=== PATIENT | female | born 1995 | race Caucasian/White ===

== ENCOUNTER 2018-11-04 17:38 | Day surgery (SDC) | payer BC ==
[~2018-11-04] VITALS: Ht 170.2 cm; Wt 183.3 kg
[~2018-11-04 17:38] MED LIST: CETI10TA17 PO; FAMO20TA13 PO; NAPR-243 PO; PRD20T PO; PRD50T PO
--- OUTSIDE RECORDS SUMMARY | 2018-11-04 17:43 | XMS REPORT | Continuity of Care Document ---
Author Organization Unknown Address Unknown Allergies Active Description Code Type Severity Reaction Onset Reported/Identified Relationship to Patient Clinical Status Yes NO NAME AVAILABLE 72186 DRUG N/A N/A Yes NO NAME AVAILABLE [id number] DRUG N/A N/A Yes No Known Drug Allergies [id number] Drug Allergy Unknown N/A 05/06/2012 Medications Medication Packaging Start Date Stop Date Route Dosage Sig OXYTOCIN-LACTATED RINGERS 30 UNIT/500ML IV SOLN 06/07/2018 Intravenous 30 ONCE PRN MISOPROSTOL 200 MCG PO TABS 06/07/2018 Rectal 200 ONCE PRN METHYLERGONOVINE MALEATE 0.2 MG/ML IJ SOLN 06/07/2018 Intramuscular 200 ONCE PRN CARBOPROST TROMETHAMINE 250 MCG/ML IM SOLN 06/07/2018 Intramuscular 250 ONCE PRN ONDANSETRON HCL 4 MG/2ML IJ SOLN 06/07/2018 Intravenous 4 ONCE LACTATED RINGERS IV SOLN 06/07/2018 Intravenous 150 CONTINUOUS SOD CITRATE-CITRIC ACID 500-334 MG/5ML PO SOLN 06/07/2018 Oral 30 ONCE BUPIVACAINE IN DEXTROSE 0.75-8.25 % IT SOLN 06/07/2018 06/07/2018 Intrathecal PHENYLEPHRINE HCL-NACL 1-0.9 MG/10ML-% IV SOSY 06/07/2018 Intravenous PRN PHENYLEPHRINE 10 MG/100 ML INFUSION (ONE-STEP) 06/07/2018 CONTINUOUS PRN OXYTOCIN 30 UNITS IN 500 ML (ONE-STEP) 06/07/2018 Intravenous CONTINUOUS PRN NALOXONE HCL 0.4 MG/ML IJ SOLN 06/07/2018 Intravenous 0.1 ONCE PRN IBUPROFEN 600 MG PO TABS 06/07/2018 06/08/2018 Oral 600 EVERY 8 HOURS [id number] PERTUSSIS 5-2-15.5 LF-MCG/0.5 IM SUSP 06/07/2018 Intramuscular 0.5 Prior to discharge ALUM T MAG HYDROXIDE-SIMETH 200-200-20 MG/5ML PO SUSP 06/07/2018 Oral 30 EVERY 4 HOURS PRN ACETAMINOPHEN 325 MG PO TABS 06/07/2018 Oral 650 EVERY 4 HOURS PRN BISACODYL 10 MG RE SUPP 06/07/2018 [address] VALENZUELA NIPPLE OINTMENT 06/07/2018 Topical PRN OXYTOCIN-LACTATED RINGERS 30 UNIT/500ML IV SOLN 06/07/2018 Intravenous 30 ONCE PRN DIPHENHYDRAMINE HCL 50 MG/ML IJ SOLN 06/07/2018 Intravenous 25 EVERY 6 HOURS PRN ONDANSETRON HCL 4 MG/2ML IJ SOLN 06/07/2018 Intravenous 4 EVERY 6 HOURS PRN LANOLIN EX OINT 06/07/2018 Topical PRN SIMETHICONE 80 MG PO CHEW 06/07/2018 Oral 80 3 TIMES DAILY PRN MAGNESIUM HYDROXIDE 400 MG/5ML PO SUSP 06/07/2018 Oral 30 DAILY PRN ONDANSETRON 4 MG PO TBDP 06/07/2018 Oral 4 EVERY 6 HOURS PRN DIPHENHYDRAMINE HCL 25 MG PO CAPS 06/07/2018 Oral 25 EVERY 6 HOURS PRN MEASLES, MUMPS T RUBELLA VAC SC INJ 06/07/2018 Subcutaneous 0.5 Prior to discharge PLUS 27-1 MG PO TABS 06/07/2018 Oral 1 DAILY DOCUSATE SODIUM 100 MG PO CAPS 06/07/2018 Oral 100 2 TIMES DAILY FERROUS SULFATE 325 (65 FE) MG PO TABS 06/07/2018 Oral 325 2 TIMES DAILY WITH MEALS LACTATED RINGERS IV SOLN 06/07/2018 Intravenous 150 CONTINUOUS ENOXAPARIN SODIUM 120 MG/0.8ML SC SOLN 06/08/2018 Subcutaneous 0.6 EVERY 24 HOURS Problems Date Dx Coded Attending Type Code Diagnosis Diagnosed By 05/06/2012 Ot 625.9 FEM GENITAL SYMPTOMS NOS 05/06/2012 Ot 789.00 ABDOMINAL PAIN, UNSPECIFIED SITE 04/05/2013 SALLY RAMOS MD Ot 708.0 ALLERGIC URTICARIA 04/05/2013 SALLY RAMOS MD Ot 708.9 URTICARIA NOS 04/05/2013 SALLY RAMOS MD Ot 995.3 ALLERGY, UNSPECIFIED 04/05/2013 SALLY RAMOS MD Ot E000.8 OTHER EXTERNAL CAUSE STATUS 04/05/2013 SALLY RAMOS MD Ot E849.0 ACCIDENT IN HOME 04/05/2013 SALLY RAMOS MD Ot E928.8 ACCIDENT NEC 01/10/2015 Ot 786.09 01/10/2015 Ot 786.2 01/30/2015 Ot 786.09 01/30/2015 Ot 786.2 01/30/2015 Ot 786.09 01/30/2015 Ot 786.2 11/12/2015 Ot 786.09 RESPIRATORY ABNORM NEC 11/12/2015 Ot 786.2 COUGH 03/08/2017 Ot 786.09 RESPIRATORY ABNORM NEC 03/08/2017 Ot 786.2 COUGH 04/05/2017 Ot 786.09 RESPIRATORY ABNORM NEC 04/05/2017 Ot 786.2 COUGH 05/04/2017 PRESSLEY, CATHLEEN K V 28 Cough PRESSLEY, CATHLEEN K 05/04/2017 PRESSLEY, CATHLEEN K V L98.9 Disorder of the skin and subcutaneous tissue, unspecified PRESSLEY, CATHLEEN K 11/01/2017 V Z32.01 Encounter for test, result positive 11/09/2017 PRESSLEY, CATHLEEN K V 447 Vaginal Bleeding During 11/09/2017 PRESSLEY, CATHLEEN K V O20.8 Other hemorrhage in early 11/09/2017 PRESSLEY, CATHLEEN K F E28.2 Polycystic ovarian syndrome 11/09/2017 PRESSLEY, CATHLEEN K F O20.9 Hemorrhage in early , unspecified 11/09/2017 PRESSLEY, CATHLEEN K F O99.281 Endocrine, nutritional and metabolic diseases complicating , first trimester 11/09/2017 PRESSLEY, CATHLEEN K F Z3A.01 Less than 8 weeks gestation of 05/29/2018 JIN JAY S V [id number] Abdominal Pain 05/29/2018 PIERRE JIN S F O26.893 Other specified related conditions, third trimester 05/29/2018 PIERRE JIN S F R10.9 Unspecified abdominal pain 05/29/2018 PIERRE JIN S F Z3A.36 36 weeks gestation of 05/29/2018 PIERRE JIN S F 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 06/11/2018 CARISSA DOTSON V 029555 Hypertension 06/11/2018 CARISSA DOTSON O32.6XX0 Maternal care for compound presentation, not applicable or unspecified 06/11/2018 CARISSA DOTSON V Z98.891 History of uterine scar from previous surgery 06/11/2018 SOPHIAGAVINO AcevedoCARISSA A V O32.6XX0 Maternal care for compound presentation, not applicable or unspecified 06/11/2018 SOPHIAGAVINO AcevedoCARISSA Cameron Keysha E28.2 Polycystic ovarian syndrome 06/11/2018 SOPHIAGAVINO AcevedoCARISSA A F E66.01 Morbid (severe) obesity due to excess calories (HCC) 06/11/2018 NILA CARISSA Barnes F F32.9 Major depressive disorder, single episode, unspecified 06/11/2018 SOPHIAGAVINO AcevedoCARISSA A F F41.9 Anxiety disorder, unspecified 06/11/2018 SOPHIACurtis CARISSA Chopra K21.9 Gastro-esophageal reflux disease without esophagitis 06/11/2018 CARISSA DOTSON F O10.92 Unspecified pre-existing hypertension complicating childbirth 06/11/2018 CARISSA DOTSON F O11.4 Pre-existing hypertension with pre-eclampsia, complicating childbirth 06/11/2018 CARISSA DOTSON O32.1XX0 Maternal care for breech presentation, not applicable or unspecified 06/11/2018 SOPHIAGAVINO AcevedoCARISSA A F O32.6XX0 Maternal care for compound presentation, not applicable or unspecified 06/11/2018 CARISSA DOTSON O99.214 Obesity complicating childbirth 06/11/2018 CARISSA DOTSON F O99.284 Endocrine, nutritional and metabolic diseases complicating childbirth 06/11/2018 CARISSA DOTSON F O99.344 Other mental disorders complicating childbirth 06/11/2018 CARISSA DOTSON F O99.62 Diseases of the digestive system complicating childbirth 06/11/2018 CARISSA DOTSON F R12 Heartburn 06/11/2018 CARISSA DOTSON Z37.0 Single live 06/11/2018 CARISSA DOTSON Z3A.37 37 weeks gestation of 06/11/2018 CARISSA DOTSON P O11.9 Pre-existing hypertension with pre-eclampsia, unspecified trimester 08/17/2018 WALI SIFUENTES V [id number] Chest Pain 08/17/2018 WALI SIFUENTES V R07.9 Chest pain, unspecified 08/17/2018 WALI SIFUENTES V R09.1 Pleurisy 08/17/2018 WALI SIFUENTES E28.2 Polycystic ovarian syndrome 08/17/2018 WALI SIFUENTES E66.01 Morbid (severe) obesity due to excess calories (HCC) 08/17/2018 WALI SIFUENTES F32.9 Major depressive disorder, single episode, unspecified 08/17/2018 WALI SIFUENTES I10 Essential (primary) hypertension 08/17/2018 WALI SIFUENTES R06.02 Shortness of breath 08/17/2018 WALI SIFUENTES R07.89 Other chest pain 08/17/2018 WALI SIFUENTES R09.1 Pleurisy 08/17/2018 WALI SIFUENTES Z68.44 Body mass index (bmi) 60.0-69.9, adult (HCC) Procedures Code Description Performed By Performed On [id number] HCG, QUANTITATIVE, 11/01/2017 [id number] AMB REFERRAL TO MATERNAL MEDICINE 02/07/2018 59695 RI NON-STRESS TEST 05/29/2018 [id number] Extraction of Products of Conception, Low, Open Approach 06/07/2018 Results Test Result Range HCG, QUANTITATIVE, - 11/01/17 14:42 B-HCG QUANTITATIVE 03284 mIU/mL <=4 CBC WITH AUTO DIFFERENTIAL - 11/09/17 01:09 BASOPHILS RELATIVE PERCENT 0.4 % 0.0-2.5 EOSINOPHILS RELATIVE PERCENT 1.2 % <=5.0 HEMATOCRIT 43.2 % 34.9-44.5 HEMOGLOBIN 14.0 g/dL 12.0-15.5 LYMPHOCYTES RELATIVE PERCENT 30.3 % 22.0-49.0 MEAN CORPUSCULAR HEMOGLOBIN 28.6 pg 26.0-34.0 MEAN CORPUSCULAR HEMOGLOBIN CONC 32.4 g/dL 31.0-37.0 MEAN CORPUSCULAR VOLUME 88.2 fL 81.6-98.3 MONOCYTES RELATIVE PERCENT 6.9 % 2.0-9.0 NEUTROPHILS RELATIVE PERCENT 61.2 % 40.0-75.0 NUCLEATED RED BLOOD CELLS 0 10E9/L <=0 PLATELET COUNT 303 10E9/L 150-450 RED BLOOD CELL COUNT 4.90 10E12/L 3.90-5.03 RED CELL DISTRIBUTION WIDTH 12.3 % 11.9-15.5 0279496 11.2 10E9/L 3.5-10.5 1550756 3.40 10E9/L 0.90-2.90 2935946 0.78 10E9/L 0.30-0.90 1802536 0.14 10E9/L 0.05-0.50 5901057 6.87 10E9/L 1.70-7.00 3327120 0.04 10E9/L 0.00-0.30 5592855 0 % HCG, QUANTITATIVE, - 11/09/17 01:09 B-HCG QUANTITATIVE 89614 mIU/mL <=4 TYPE AND SCREEN - 11/09/17 01:09 ABORH O POS ANTIBODY SCREEN NEG TRICHOMONAS RAPID TEST - 11/09/17 01:35 2407828 Negative Negative, Invalid CHLAMYDIA TRACHOMATIS AMPLIFIED PROBE - 11/09/17 01:35 [id number] Negative Negative NEISSERIA GONORRHOEAE AMPLIFIED PROBE - 11/09/17 01:35 [id number] Negative Negative GRAM STAIN, ONLY - 11/09/17 01:36 [id number] No evidence of Bacterial Vaginosis HCG, QUANTITATIVE, - 11/10/17 10:03 B-HCG QUANTITATIVE 02668 mIU/mL <=4 CHLAMYDIA TRACHOMATIS AMPLIFIED PROBE - 12/13/17 10:40 [id number] Negative Negative NEISSERIA GONORRHOEAE AMPLIFIED PROBE - 12/13/17 10:40 [id number] Negative Negative PAP, LIQUID-BASED - 12/13/17 10:40 [id number] Result to be found under pathology section CBC WITH AUTO DIFFERENTIAL - 12/13/17 12:44 BASOPHILS RELATIVE PERCENT 0.4 % 0.0-2.5 EOSINOPHILS RELATIVE PERCENT 1.4 % <=5.0 HEMATOCRIT 40.3 % 34.9-44.5 HEMOGLOBIN 13.2 g/dL 12.0-15.5 LYMPHOCYTES RELATIVE PERCENT 25.7 % 22.0-49.0 MEAN CORPUSCULAR HEMOGLOBIN 28.9 pg 26.0-34.0 MEAN CORPUSCULAR HEMOGLOBIN CONC 32.8 g/dL 31.0-37.0 MEAN CORPUSCULAR VOLUME 88.2 fL 81.6-98.3 MONOCYTES RELATIVE PERCENT 7.6 % 2.0-9.0 NEUTROPHILS RELATIVE PERCENT 64.9 % 40.0-75.0 NUCLEATED RED BLOOD CELLS 0 10E9/L <=0 PLATELET COUNT 266 10E9/L 150-450 RED BLOOD CELL COUNT 4.57 10E12/L 3.90-5.03 RED CELL DISTRIBUTION WIDTH 12.5 % 11.9-15.5 4495964 9.1 10E9/L 3.5-10.5 0901547 2.34 10E9/L 0.90-2.90 2849632 0.69 10E9/L 0.30-0.90 7658722 0.13 10E9/L 0.05-0.50 2881228 5.91 10E9/L 1.70-7.00 9320930 0.04 10E9/L 0.00-0.30 3802185 0 % TYPE AND SCREEN - 12/13/17 12:44 ABORH O POS ANTIBODY SCREEN NEG HEPATITIS B SURFACE ANTIGEN - 12/13/17 12:44 HEPATITIS B SURFACE ANTIGEN INTERPRETATION Non-reactive Non- reactive RUBELLA ANTIBODY, IGG - 12/13/17 12:44 RUBELLA SCREEN 23.80 IU/mL GEST. GLUCOSE SCREEN - 12/13/17 12:44 GEST. GLUCOSE SCREEN 82 mg/dL <=139 HIV-1/2 ANTIBODY, HIV-1 P24 ANTIGEN - 12/13/17 12:44 [id number] Non-Reactive Non-Reactive RPR - 12/13/17 12:44 RPR Non-Reactive Non-Reactive URINE CULTURE - 12/13/17 12:44 [id number] [place] Count>92364 <446174 cfu/mL of at least 2 organisms suggestive of contamination PREPARENT STANDARD - 12/13/17 12:44 [id number] See scanned Progenity report PROTEIN / CREATININE RATIO, URINE - 02/16/18 14:25 CREATININE URINE 163.4 mg/dL PROTEIN URINE 8.0 mg/dL [id number] 0.05 <0.16 CBC WITHOUT DIFFERENTIAL - 03/28/18 12:12 HEMATOCRIT 36.3 % 34.9-44.5 HEMOGLOBIN 11.9 g/dL 12.0-15.5 MEAN CORPUSCULAR HEMOGLOBIN 30.3 pg 26.0-34.0 MEAN CORPUSCULAR HEMOGLOBIN CONC 32.8 g/dL 31.0-37.0 MEAN CORPUSCULAR VOLUME 92.4 fL 81.6-98.3 PLATELET COUNT 309 10E9/L 150-450 RED BLOOD CELL COUNT 3.93 10E12/L 3.90-5.03 RED CELL DISTRIBUTION WIDTH 12.9 % 11.9-15.5 3795311 11.2 10E9/L 3.5-10.5 GEST. GLUCOSE SCREEN - 03/28/18 12:12 GEST. GLUCOSE SCREEN 107 mg/dL <=139 PROTEIN, URINE, 24 HOUR - 04/06/18 06:15 24 HR URINE VOLUME 1600 mL 800-1,800 PROTEIN 24 HOUR URINE mg/24h 0-149 PROTEIN URINE < mg/dL GROUP B BETA STREP SCREEN - 05/31/18 08:15 [id number] Negative PERFORM URINE SCREEN, AUTOMATED - 06/07/18 16:28 APPERANCE Clear BILIRUBIN 1+ Negative COLOR Dark Yellow GLUCOSE Negative Negative HEMOGLOBIN Negative Negative KETONES Trace Negative LEUKOESTERASE Negative Negative NITRATE Negative Negative PH-URINE 6.0 5.0-8.0 PROTEIN 1+ Negative SPECIFIC GRAVITY 1.020 1.003-1.030 2239 0.2 EU <=0.2 PROTEIN / CREATININE RATIO, URINE - 06/07/18 17:22 CREATININE URINE 240.8 mg/dL PROTEIN URINE 14.1 mg/dL [id number] 0.06 <0.16 CBC WITH AUTO DIFFERENTIAL - 06/07/18 18:19 BASOPHILS RELATIVE PERCENT 0.3 % 0.0-2.5 EOSINOPHILS RELATIVE PERCENT 0.6 % <=5.0 HEMATOCRIT 35.5 % 34.9-44.5 HEMOGLOBIN 11.5 g/dL 12.0-15.5 LYMPHOCYTES RELATIVE PERCENT 18.6 % 22.0-49.0 MEAN CORPUSCULAR HEMOGLOBIN 29.4 pg 26.0-34.0 MEAN CORPUSCULAR HEMOGLOBIN CONC 32.4 g/dL 31.0-37.0 MEAN CORPUSCULAR VOLUME 90.8 fL 81.6-98.3 MONOCYTES RELATIVE PERCENT 5.5 % 2.0-9.0 NEUTROPHILS RELATIVE PERCENT 75.0 % 40.0-75.0 NUCLEATED RED BLOOD CELLS 0 10E9/L <=0 PLATELET COUNT 331 10E9/L 150-450 RED BLOOD CELL COUNT 3.91 10E12/L 3.90-5.03 RED CELL DISTRIBUTION WIDTH 12.8 % 11.9-15.5 6279541 11.8 10E9/L 3.5-10.5 8110472 2.19 10E9/L 0.90-2.90 9501198 0.65 10E9/L 0.30-0.90 8975161 0.07 10E9/L 0.05-0.50 3515508 8.85 10E9/L 1.70-7.00 5815235 0.03 10E9/L 0.00-0.30 1349594 0 % URIC ACID - 06/07/18 18:19 URIC ACID 6.7 mg/dL 2.8-7.6 COMPREHENSIVE METABOLIC PANEL - 06/07/18 18:19 ALBUMIN 4.0 g/dL 3.4-4.8 ALKALINE PHOSPHATASE 319 U/L 29-122 ALT 92 U/L 10-46 ANION GAP 10 AST 62 U/L 16-37 BILIRUBIN,TOTAL 0.4 mg/dL 0.0-1.2 BUN BLOOD 10 mg/dL 6-20 CALCIUM 9.3 mg/dL 8.7-10.5 CHLORIDE 104 mmol/L 99-111 CO2 23 mmol/L 20-36 CREATININE 0.83 mg/dL 0.40-1.10 EGFR > mL/min >59 GLUCOSE 92 mg/dL 74-106 POTASSIUM 4.5 mmol/L 3.6-4.9 PROTEIN TOTAL 6.9 g/dL 6.4-8.3 SODIUM 137 mmol/L 136-145 LACTATE DEHYDROGENASE - 06/07/18 18:19 LDH 258 u/L 128-212 Packed Cells Leukoreduced - 06/07/18 17:50 Packed Cells Leukoreduced CORD GAS,VENOUS - 06/07/18 20:21 BASE EXCESS CORD VENOUS -7 mmol/L 1-2 PCO2 CORD VENOUS 68 mm Hg 28-40 PH CORD VENOUS 7.16 7.31-7.37 PO2 CORD VENOUS 11 mm Hg 21-31 CORD GAS,ARTERIAL - 06/07/18 20:21 BASE EXCESS ARTERIAL CORD -7.9 mmol/L -9.9-0.0 PCO2 CORD ARTERIAL 81 mm Hg 33-49 PH CORD ARTERIAL 7.09 7.16-7.40 PO2 CORD ARTERIAL 9 mm Hg 9-19 HEMOGLOBIN AND HEMATOCRIT, BLOOD - 06/08/18 07:13 HEMATOCRIT 33.1 % 34.9-44.5 HEMOGLOBIN 10.8 g/dL 12.0-15.5 CBC WITH AUTO DIFFERENTIAL - 08/17/18 00:53 BASOPHILS RELATIVE PERCENT 0.3 % 0.0-2.5 EOSINOPHILS RELATIVE PERCENT 1.5 % <=5.0 HEMATOCRIT 39.0 % 34.9-44.5 HEMOGLOBIN 12.1 g/dL 12.0-15.5 LYMPHOCYTES RELATIVE PERCENT 17.8 % 22.0-49.0 MEAN CORPUSCULAR HEMOGLOBIN 26.8 pg 26.0-34.0 MEAN CORPUSCULAR HEMOGLOBIN CONC 31.0 g/dL 31.0-37.0 MEAN CORPUSCULAR VOLUME 86.5 fL 81.6-98.3 MONOCYTES RELATIVE PERCENT 4.7 % 2.0-9.0 NEUTROPHILS RELATIVE PERCENT 75.7 % 40.0-75.0 NUCLEATED RED BLOOD CELLS 0 10E9/L <=0 PLATELET COUNT 352 10E9/L 150-450 RED BLOOD CELL COUNT 4.51 10E12/L 3.90-5.03 RED CELL DISTRIBUTION WIDTH 13.2 % 11.9-15.5 3603842 13.5 10E9/L 3.5-10.5 6769289 2.40 10E9/L 0.90-2.90 7529721 0.63 10E9/L 0.30-0.90 4658892 0.20 10E9/L 0.05-0.50 4138332 10.18 10E9/L 1.70-7.00 6493468 0.04 10E9/L 0.00-0.30 4223704 0 % COMPREHENSIVE METABOLIC PANEL - 08/17/18 00:53 ALBUMIN 4.2 g/dL 3.4-4.8 ALKALINE PHOSPHATASE 160 U/L 29-122 ALT 31 U/L 10-46 ANION GAP 9 AST 36 U/L 16-37 BILIRUBIN,TOTAL 0.4 mg/dL 0.0-1.2 BUN BLOOD 16 mg/dL 6-20 CALCIUM 8.9 mg/dL 8.7-10.5 CHLORIDE 102 mmol/L 99-111 CO2 29 mmol/L 20-36 CREATININE 1.03 mg/dL 0.40-1.10 EGFR > mL/min >59 GLUCOSE 134 mg/dL 74-106 POTASSIUM 4.4 mmol/L 3.6-4.9 PROTEIN TOTAL 6.4 g/dL 6.4-8.3 SODIUM 140 mmol/L 136-145 TROPONIN I - 08/17/18 00:53 TROPONIN I < ng/mL 0.000-0.040 URINALYSIS, REFLEX CULTURE IF NEEDED - 08/17/18 01:35 APPEARANCE Cloudy BACTERIA 2+ /ul BILIRUBIN UA Negative Negative COLOR Yellow GLUCOSE UA Negative Negative HEMOGLOBIN UA Negative Negative LEUKOCYTE ESTERASE UA Negative Negative NITRATE UA Negative Negative PH UA 5.5 5.0-8.0 PROTEIN UA Negative Negative RBC UA 0-3 /hpf 0-3 SPECIFIC GRAVITY UA 1.028 1.003-1.030 SQUAMOUS EPITHELIAL 4+ /hpf UROBILINOGEN UA 1.0 EU/dL 0.2 WBC UA 4-10 /hpf 0-3 5918503 Negative Negative 2984967 5 /lpf Radiology Report from [id number] on 04/12/2018 15:39:20 Results from a Maternal Medicine study have been reported below.* [employer] users: Click "Open ViewPoint Report" link under "Linked Documents" section.* [facility] P[facility] users: View this result from [employer].* FAX Recipients: Blank page may follow report. Contact [facility] at [phone] if illegible or missing page. Radiology Report from [id number] on 05/10/2018 16:38:56 Results from a Maternal Medicine study have been reported below.* [employer] users: Click "Open ViewPoint Report" link under "Linked Documents" section.* [facility] users: View this result from [employer].* FAX Recipients: Blank page may follow report. Contact [facility] at [phone] if illegible or missing page. Radiology Report from [id number] on 06/07/2018 15:53:26 Results from a Maternal Medicine study have been reported below.* [employer] users: Click "Open ViewPoint Report" link under "Linked Documents" section.* [facility] users: View this result from [employer].* FAX Recipients: Blank page may follow report. Contact [facility] at [phone] if illegible or missing page. Radiology Report from [id number] on 08/17/2018 07:20:18 EXAM: Chest, 2 ViewsINDICATION: Atypical chestTECHNIQUE: PA and lateral viewsCOMPARISON: NoneFINDINGS:The heart size is normal.The great vessels appear unremarkable.There is no hilar or mediastinal mass.The lungs are clear.There is no pleural effusion or pneumothorax.There are no significant osseous abnormalities.IMPRESSION:No active cardiopulmonary disease. Encounters ACCT No. Visit Date/Time Discharge Status Pt. Type Provider Facility Loc./Unit Complaint [id number] 11/01/2018 11:20:00 ACT Outpatient [facility] [id number] 04/05/2013 07:15:00 04/05/2013 10:23:00 DIS Emergency RACHEL CARRENO, SALLY Crane [facility] ER ALLERGIC REACTION [id number] 12/31/2012 11:16:00 12/31/2012 23:59:59 CLS Outpatient [id number] 06/15/2012 14:54:00 Document Registration [id number] 05/06/2012 09:43:00 Document Registration [id number] 07/21/2018 11:17:28 07/21/2018 23:59:59 CLS Outpatient [facility] [employer] [facility] [id number] 06/17/2018 11:42:37 06/17/2018 23:59:59 [facility] [place] [employer] [id number] 06/07/2018 09:09:34 06/07/2018 23:59:59 CLS Outpatient [facility] [place] [employer] [id number] 05/31/2018 08:17:10 05/31/2018 23:59:59 CLS Outpatient [place] [employer] [facility] [id number] 05/31/2018 08:01:12 05/31/2018 23:59:59 CLS Outpatient [facility] [place] [employer] [place] [id number] 05/25/2018 08:09:07 05/25/2018 23:59:59 CLS Outpatient [facility] [place] [employer] [place] [id number] 05/10/2018 10:47:04 05/10/2018 23:59:59 CLS Outpatient [place] [employer] [facility] [id number] 05/10/2018 08:59:23 05/10/2018 23:59:59 CLS Outpatient JIN JAY [place] [facility] [facility] [id number] 04/26/2018 11:10:29 04/26/2018 23:59:59 CLS Outpatient JIN JAY [place] [facility] [facility] [id number] 04/13/2018 11:28:40 04/13/2018 23:59:59 CLS Outpatient JIN JAY [place] [facility] [facility] [id number] 04/06/2018 11:06:36 04/06/2018 23:59:59 CLS Outpatient [place] [facility] [employer] [facility] [id number] 03/28/2018 10:58:38 03/28/2018 23:59:59 CLS Outpatient [place] [facility] [employer] [facility] [id number] 03/28/2018 10:57:11 03/28/2018 23:59:59 CLS Outpatient JIN JAY [place] [facility] [facility] [id number] 03/08/2018 10:03:31 03/08/2018 23:59:59 CLS Outpatient TORY NIELSON [place] [employer] [facility] [id number] 02/07/2018 14:47:33 02/07/2018 23:59:59 CLS Outpatient KAITYSAMRALINDAZACKARY [place] [employer] [facility] [id number] 02/07/2018 14:46:47 02/07/2018 23:59:59 CLS Outpatient [place] [facility] [facility] [id number] 01/10/2018 09:21:27 01/10/2018 23:59:59 CLS Outpatient [place] [employer] [facility] [id number] 01/10/2018 08:51:04 01/10/2018 23:59:59 CLS Outpatient CELIA BLACKMAN [place] [employer] [facility] [id number] 12/13/2017 11:22:01 12/13/2017 23:59:59 CLS Outpatient [place] [employer] [facility] [id number] 12/13/2017 10:29:48 12/13/2017 23:59:59 CLS Outpatient JAYSON DENISE [place] [employer] [facility] [id number] 11/19/2017 15:18:29 11/19/2017 23:59:59 CLS Outpatient [place] [employer] [facility] [id number] 11/10/2017 09:58:23 11/10/2017 23:59:59 CLS Outpatient [place] [employer] [facility] [id number] 11/05/2017 15:16:37 11/05/2017 23:59:59 CLS Outpatient [place] [employer] [facility] [id number] 11/01/2017 14:37:38 11/01/2017 23:59:59 CLS Outpatient [place] [employer] W[facility] [id number] 10/11/2018 10:13:45 10/11/2018 23:59:59 CLS Outpatient Linnette Lubin DeniaRayne [id number] 08/16/2018 23:55:58 08/17/2018 02:36:00 DIS Emergency WALI SIFUENTES [facility] [id number] 06/20/2018 11:10:51 06/20/2018 23:59:00 DIS Outpatient [facility] [id number] 06/13/2018 12:17:47 06/13/2018 23:59:00 DIS Outpatient PIERRE JIN Loza [facility] [id number] 06/12/2018 12:43:43 06/12/2018 23:59:00 DIS Outpatient PIERRESAKINAJIN S [facility] [id number] 06/07/2018 16:09:00 06/11/2018 15:21:00 DIS Inpatient CARISSA DOTSON [facility] [id number] 06/07/2018 15:08:04 06/07/2018 23:59:59 CLS Outpatient [facility] [id number] 06/07/2018 15:00:29 06/07/2018 23:59:59 CLS Outpatient [facility] [id number] 06/07/2018 14:59:19 06/07/2018 23:59:59 CLS Outpatient CHAUNCEY JUAREZ [facility] [id number] 05/29/2018 06:05:23 05/29/2018 23:59:59 CLS Outpatient JIN JAY [address] [id number] 05/29/2018 03:34:00 05/29/2018 05:55:00 DIS Outpatient JIN JAY [address] [id number] 05/10/2018 15:13:28 05/10/2018 23:59:59 CLS Outpatient [place] [facility] [id number] 05/10/2018 14:56:02 05/10/2018 23:59:59 CLS Outpatient [place] [facility] [id number] 05/10/2018 14:55:42 05/10/2018 23:59:59 CLS Outpatient REILLY ROMERO [facility] [id number] 04/12/2018 14:10:23 04/12/2018 23:59:59 CLS Outpatient [place] [facility] [id number] 04/12/2018 13:48:14 04/12/2018 23:59:59 CLS Outpatient [place] [facility] [id number] 04/12/2018 13:47:32 04/12/2018 23:59:59 CLS Outpatient REILLY ROMERO [facility] [id number] 03/16/2018 13:04:32 03/16/2018 23:59:59 CLS Outpatient [place] [facility] [id number] 03/16/2018 12:48:22 03/16/2018 23:59:59 CLS Outpatient [place] [facility] [id number] 03/16/2018 12:47:58 03/16/2018 23:59:59 CLS Outpatient REILLY ROMERO [facility] [id number] 02/16/2018 13:02:33 02/16/2018 23:59:59 CLS Outpatient [place] [facility] [id number] 02/16/2018 12:24:03 02/16/2018 23:59:59 CLS Outpatient [place] [facility] [id number] 02/16/2018 12:23:39 02/16/2018 23:59:59 CLS Outpatient REILLY ROMERO [facility] [id number] 11/09/2017 00:58:07 11/09/2017 02:45:00 DIS Emergency PRESSLEYCATHLEEN Llamas [facility] [id number] 05/04/2017 20:59:14 05/04/2017 21:17:00 DIS Emergency PRESSLEYCATHLEEN Llamas [facility] [id number] 10/27/2015 16:32:47 10/27/2015 23:59:59 [facility] Outpatient VICK MIDDLETON [facility] [id number] 08/17/2018 01:11:06 Document Registration [id number] 06/07/2018 20:14:18 Document Registration [id number] 06/02/2018 10:40:15 Document Registration [id number] 04/06/2018 13:28:24 Document Registration [id number] 03/28/2018 14:16:35 Document Registration [id number] 12/13/2017 14:32:18 Document Registration [id number] 11/10/2017 13:29:03 Document Registration [id number] 11/01/2017 18:53:52 Document Registration
--- NOTE | 2018-11-04 18:20 | ED Abdominal Pain ---
General Chief Complaint: Abdominal/GI Problems Stated Complaint: R SIDE ABD PAIN Nursing Triage Note: PATIENT STATES THAT SHE HAS HAD "GALLBLADDER ATTACKS" SINCE BEFORE HER SECTION IN MAY. SHE HAS THEM ABOUT MONTHLY BUT HER PAIN HAS BEEN OFF AND ON CONSISTENTLY SINCE LAST NIGHT. SHE STATES THE PAIN IS SEVERE. Sepsis Screen: No Definite Risk Source of Information: Patient Exam Limitations: No Limitations History of Present Illness Date Seen by Provider: Nov 04, 2018 Time Seen by Provider: 18:00 Initial Comments PT ARRIVES VIA POV FROM HOME C/O "GALLBLADDER ATTACKS" C/O RUQ PAIN "THAT GOES INTO MY SHOULDERS AND UP MY BACK AND INTO MY CHEST" STATES SHE HAD A IN MAY AND HAS BEEN HAVING THIS SAME PAIN SINCE JUNE STATES SHE HAS ABOUT ONE "ATTACK" A MONTH, USUALLY LASTING AN HOUR STATES SINCE 2129 LAST NIGHT, SHE HAS HAD "5 ATTACKS" C/O NAUSEA, AND VOMITED X 1 AT 0200 NO DIARRHEA NO FEVER NO URINARY SYMPTOMS HAS CONTINUED TO EAT AND DRINK USUAL--HAD FRIED CHICKEN STRIPS TODAY AROUND 1300, AND AN PEPSI STATES SHE WENT TO ER ONE TIME WHEN IT FIRST HAPPENED, AND WAS TOLD IT WAS "PROBABLY MY GALLBLADDER" BUT NEVER FOLLOWED UP WITH ANYONE FOR IT HAS NOT TAKEN ANYTHING FOR PAIN LMP 1 WEEK AGO, NO CONTROL NOT PCP: [facility] Allergies and Home Medications Allergies Coded Allergies: No Known Drug Allergies (Unverified , 05/06/12) Patient Home Medication List Home Medication List Reviewed: Yes Review of Systems Review of Systems Constitutional: no symptoms reported Respiratory: No Symptoms Reported Cardiovascular: See HPI Gastrointestinal: See HPI, Abdominal Pain; Denies Constipated, Denies Diarrhea; Nausea, Vomiting Genitourinary: No Symptoms Reported Musculoskeletal: see HPI, back pain Skin: no symptoms reported Psychiatric/Neurological: No Symptoms Reported Endocrine: No Symptoms Reported Hematologic/Lymphatic: No Symptoms Reported Past [id number] Hx Patient Social History Alcohol Use: Occasionally Uses Recreational Drug Use: No Smoking Status: Former Smoker (QUIT IN 2014) Type Used: Cigarettes 2nd Hand Smoke Exposure: No Recent Foreign Travel: No Contact w/Someone Who Travel: No Recent Infectious Disease Expo: No Past Medical History Surgeries: Yes ( X 1) Section, Tonsillectomy Respiratory: No Cardiac: No Neurological: No Reproductive Disorders: No Genitourinary: No Gastrointestinal: No Musculoskeletal: No Endocrine: No HEENT: Yes (S/P TONSILLECTOMY) Tonsilitis Cancer: No Psychosocial: No Integumentary: No Physical Exam Vital Signs Vital Signs - First Documented 11/04/18 17:41 Temp 98.0 Pulse 62 Resp 18 B/P (MAP) 159/91 (113) Pulse Ox 99 O2 Delivery Nasal Cannula Capillary Refill : Less Than 3 Seconds Height/Weight/BMI Height: 5'7.00" Weight: 404lbs. 5.0oz. 183.665167ms; BMI Method:Actual General Appearance: no apparent distress, obese (MORBIDLY OBESE), other (WALKS UPRIGHT AND MOVES WITHOUT DIFFICULTY. DOES NOT APPEAR TO BE IN ANY DISCOMFORT OR DISTRESS AT THIS TIME) HEENT: PERRL/EOMI Respiratory: normal breath sounds, no respiratory distress, no accessory muscle use Cardiovascular: no murmur Gastrointestinal: soft; No distended, No guarding, No rebound; tenderness (RUQ TENDERNESS); No hernia, No mass Extremities: normal inspection Back: no CVA tenderness, no vertebral tenderness Neurologic/Psychiatric: mate first II-XII nml as tested, no motor/sensory deficits, alert, normal mood/affect, oriented x 3 Skin: normal color, warm/dry; No rash Progress/Results/Core Measures Results/Orders Lab Results Laboratory Tests Test 11/04/18 18:12 11/04/18 18:16 Range/Units Urine Color YELLOW Urine Clarity SLIGHTLY CLOUDY Urine pH 7 5-9 Urine Specific Edwards 1.005 L 1.016-1.022 Urine Protein 1+ H NEGATIVE Urine Glucose (UA) NEGATIVE NEGATIVE Urine Ketones NEGATIVE NEGATIVE Urine Nitrite NEGATIVE NEGATIVE Urine Bilirubin 1+ H NEGATIVE Urine Urobilinogen 4 H NORMAL MG/DL Urine Leukocyte Esterase 1+ H NEGATIVE Urine RBC (Auto) 5+ H NEGATIVE Urine RBC NONE /HPF Urine WBC 10-25 H /HPF Urine Squamous Epithelial Cells 25-50 H /HPF Urine Crystals NONE /LPF Urine Bacteria MODERATE H /HPF Urine Casts NONE /LPF Urine Mucus NEGATIVE /LPF Urine Culture Indicated YES White Blood Count 4.7 4.3-11.0 10^3/uL Red Blood Count 4.98 4.35-5.85 10^6/uL Hemoglobin 13.4 11.5-16.0 G/DL Hematocrit 41 35-52 % Mean Corpuscular Volume 81 80-99 FL Mean Corpuscular Hemoglobin 27 25-34 PG Mean Corpuscular Hemoglobin Concent 33 32-36 G/DL Red Cell Distribution Width 13.8 10.0-14.5 % Platelet Count 310 130-400 10^3/uL Mean Platelet Volume 10.8 H 7.4-10.4 FL Neutrophils (%) (Auto) 52 42-75 % Lymphocytes (%) (Auto) 37 12-44 % Monocytes (%) (Auto) 9 0-12 % Eosinophils (%) (Auto) 2 0-10 % Basophils (%) (Auto) 0 0-10 % Neutrophils # (Auto) 2.5 1.8-7.8 X 10^3 Lymphocytes # (Auto) 1.7 1.0-4.0 X 10^3 Monocytes # (Auto) 0.4 0.0-1.0 X 10^3 Eosinophils # (Auto) 0.1 0.0-0.3 10^3/uL Basophils # (Auto) 0.0 0.0-0.1 10^3/uL Sodium Level 138 135-145 MMOL/L Potassium Level 4.5 3.6-5.0 MMOL/L Chloride Level 103 98-107 MMOL/L Carbon Dioxide Level 27 21-32 MMOL/L Anion Gap 8 5-14 MMOL/L Blood Urea Nitrogen 11 7-18 MG/DL Creatinine 1.00 0.60-1.30 MG/DL Estimat Glomerular Filtration Rate > 60 BUN/Creatinine Ratio 11 Glucose Level 101 70-105 MG/DL Calcium Level 9.5 8.5-10.1 MG/DL Corrected Calcium 9.4 8.5-10.1 MG/DL Total Bilirubin 2.2 H 0.1-1.0 MG/DL Aspartate Amino Transf (AST/SGOT) 827 H 5-34 U/L Alanine Aminotransferase (ALT/SGPT) 659 H 0-55 U/L Alkaline Phosphatase 273 H 40-136 U/L Total Protein 7.3 6.4-8.2 GM/DL Albumin 4.1 3.2-4.5 GM/DL Amylase Level 23 L 25-125 U/L Lipase 15 8-78 U/L My Orders Orders - HAL LÓPEZ DO Ed Iv/Invasive Line Start (11/04/18 18:08) Urine Bedside (11/04/18 18:08) Amylase (11/04/18 18:08) Cbc With Automated Diff (11/04/18 18:08) Comprehensive Metabolic Panel (11/04/18 18:08) Lipase (11/04/18 18:08) Ua Culture If Indicated (11/04/18 18:08) Ct Abdomen/Pelvis W (11/04/18 18:30) Acute Abd Series (11/04/18 18:30) Ondansetron Injection (Zofran Injectio (11/04/18 18:30) Ketorolac Injection (Toradol Injection) (11/04/18 18:30) Ed Iv/Invasive Line Start (11/04/18 18:30) Lactated Ringers (Lr 1000 Ml Iv Solution (11/04/18 18:30) Urine Culture (11/04/18 18:12) Iohexol Injection (Omnipaque 350 Mg/Ml 1 (11/04/18 19:00) Received Contrast (Hold Metformin- Contr (11/04/18 19:00) Sodium Chloride Flush (Catheter Flush Sy (11/04/18 19:00) Ns (Ivpb) (Sodium Chloride 0.9% Ivpb Bag (11/04/18 19:00) Medications Given in ED Current Medications Medications Dose Ordered Sig/Sailaja Route Start Time Stop Time Status Last Admin Dose Admin Iohexol 100 ml ONCE ONCE IV 11/04/18 19:00 11/04/18 19:01 DC 11/04/18 19:05 100 ML Lactated Ringer's 1,000 ml @ 0 mls/hr Q0M ONCE IV 11/04/18 18:30 11/04/18 18:32 DC 11/04/18 18:38 0 MLS/HR Ondansetron HCl 4 mg ONCE ONCE IVP 11/04/18 18:30 11/04/18 18:32 DC 11/04/18 18:38 4 MG Sodium Chloride 10 ml NEEDED PRN IV 11/04/18 19:00 11/04/18 19:06 10 ML Sodium Chloride 100 ml ONCE ONCE IV 11/04/18 19:00 11/04/18 19:01 DC 11/04/18 19:06 80 ML Vital Signs/I&O 11/04/18 17:41 Temp 98.0 Pulse 62 Resp 18 B/P (MAP) 159/91 (113) Pulse Ox 99 O2 Delivery Nasal Cannula Blood Pressure Mean: 113 Progress Progress Note : Progress Note PAIN AND NAUSEA EASED WITH ZOFRAN AND TORADOL Diagnostic Imaging Comments ABDOMEN XRAYS--NO ACUTE PROCESS CT ABDOMEN/PELVIS--CHOLELITHIASIS, DISTENDED GB AT 13 CM, CBD IS NOT DILATED PER RADIOLOGIST REPORTS AT 1924 Reviewed: Reviewed by Me Departure Communication (Admissions) 1926--SPOKE WITH 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 ACCEPTS PT FOR ADMIT Impression Primary Impression: Cholelithiasis Additional Impression: Elevated liver enzymes Disposition: ADMITTED INPATIENT Condition: Improved Admissions Decision to Admit Reason: Admit from ER (General) Decision to Admit/Date: Nov 04, 2018 Time/Decision to Admit Time: 19:30 Departure-Patient Inst. Referrals: NO,LOCAL PHYSICIAN (PCP/Family) Primary Care Physician HAL LÓPEZ DO Nov 04, 2018 18:20
[2018-11-04 18:21] LABS: BILIRUBIN,URINE 1+ (NEGATIVE); CLARITY,URINE SLIGHTLY CLOUDY; COLOR,URINE YELLOW; GLUCOSE, URINE (UA) NEGATIVE (NEGATIVE); KETONES,URINE NEGATIVE (NEGATIVE); LEUKOCYTE ESTERASE ,URINE 1+ (NEGATIVE); NITRITE,URINE NEGATIVE (NEGATIVE); PH,URINE 7 (5-9); PROTEIN,URINE 1+ (NEGATIVE); UROBILINOGEN,URINE 4 MG/DL (NORMAL)
[2018-11-04 18:23] LABS: BASOPHILS % (AUTO) 0 % (0-10); EOSINOPHILS # (AUTO) 0.1 10^3/uL (0.0-0.3); EOSINOPHILS % (AUTO) 2 % (0-10); HEMATOCRIT 41 % (35-52); HEMOGLOBIN 13.4 G/DL (11.5-16.0); LYMPHOCYTES # (AUTO) 1.7 X 10^3 (1.0-4.0); LYMPHOCYTES % (AUTO) 37 % (12-44); MEAN CORPUSCULAR HEMOGLOBIN 27 PG (25-34); MEAN CORPUSCULAR HGB CONC 33 G/DL (32-36); MEAN CORPUSCULAR VOLUME 81 FL (80-99); MEAN PLATELET VOLUME 10.8 FL (7.4-10.4); MONOCYTES # (AUTO) 0.4 X 10^3 (0.0-1.0); MONOCYTES % (AUTO) 9 % (0-12); NEUTROPHILS # (AUTO) 2.5 X 10^3 (1.8-7.8); NEUTROPHILS % (AUTO) 52 % (42-75); PLATELET COUNT 310 10^3/uL (130-400); RED CELL DISTRIBUTION WIDTH 13.8 % (10.0-14.5); WHITE BLOOD COUNT 4.7 10^3/uL (4.3-11.0)
[2018-11-04] MEDS ORDERED: ONDANSETRON 4 MG/2 ML (SDV) Z0FRAN IVP ONE (18:30)
[2018-11-04] MEDS ORDERED: KETOROLAC 30 MG/ML VIAL IVP STA (18:30)
[2018-11-04] MEDS ORDERED: LACTATED RINGERS 1,000 ML IV ONE (18:30)
[2018-11-04 18:33] LABS: BACTERIA,URINE MODERATE /HPF; SQUAMOUS EPITHELIAL CELL,UR 25-50 /HPF
[2018-11-04 18:44] LABS: ALANINE AMINOTRANSFERASE 659 U/L (0-55); ALBUMIN 4.1 GM/DL (3.2-4.5); ALKALINE PHOSPHATASE 273 U/L (40-136); AMYLASE 23 U/L (25-125); BILIRUBIN,TOTAL 2.2 MG/DL (0.1-1.0); BUN/CREATININE RATIO 11; CALCIUM 9.5 MG/DL (8.5-10.1); CARBON DIOXIDE 27 MMOL/L (21-32); CHLORIDE 103 MMOL/L (98-107); GFR ESTIMATED > 60; GLUCOSE 101 MG/DL (70-105); LIPASE 15 U/L (8-78); POTASSIUM 4.5 MMOL/L (3.6-5.0); SODIUM 138 MMOL/L (135-145); TOTAL PROTEIN 7.3 GM/DL (6.4-8.2)
[2018-11-04] MEDS ORDERED: CATHETER FLUSH 10 ML SYR IV PRN ×2 (19:00→20:30)
[2018-11-04] MEDS ORDERED: HOLD METFORMIN - RECEIVED CONTRAST 20 ML VIAL IV SCH (19:00)
[2018-11-04] MEDS ORDERED: NS 100 ML (IVPB) BAG IV ONE (19:00)
[2018-11-04] MEDS ORDERED: IOHEXOL 350 MG/ML 100 ML (OMNIPAQUE 350) VIAL IV ONE (19:00)
--- NOTE | 2018-11-04 19:00 | NUR ---
assumed care of this patient at this time. patient is in CT at this time. Introduced self to sig. Other
--- NOTE | 2018-11-04 19:03 | Diagnostic Imaging Report ---
INDICATION: Right upper quadrant pain. FINDINGS: PA chest and upright abdomen were obtained. Lung bases are clear. There is no intraperitoneal free air. Bowel gas pattern is normal. IMPRESSION: No acute abnormalities in the abdomen or chest. Dictated by: Dictated on workstation # [id number]
--- NOTE | 2018-11-04 19:24 | Diagnostic Imaging Report ---
PROCEDURE: CT abdomen and pelvis with contrast. TECHNIQUE: Multiple contiguous axial images were obtained through the abdomen and pelvis after administration of intravenous contrast. Auto Exposure Controls were utilized during the CT exam to meet ALARA standards for radiation dose reduction. INDICATION: Right upper quadrant pain. FINDINGS: Lung bases are clear. Liver appears normal. The gallbladder is distended. There are stones layering in the dependent portion of the gallbladder. The common duct is not dilated. The pancreas appears normal. Portal vein is patent. Spleen is unremarkable. Kidneys and adrenals appear normal. Small bowel is not dilated. There is no evidence for appendicitis. Colon appears normal. Uterus and ovaries appear normal. Urinary bladder is normal. There is no intraperitoneal free air or free fluid. IMPRESSION: Dilated gallbladder that measures 13 cm in length. There are some small calcified stones in the dependent portion of the gallbladder. The common duct is not dilated. Dictated by: Dictated on workstation # [id number]
--- OUTSIDE RECORDS SUMMARY | 2018-11-04 19:54 | XMS REPORT | Continuity of Care Document ---
Author Organization Unknown Address Unknown Allergies Active Description Code Type Severity Reaction Onset Reported/Identified Relationship to Patient Clinical Status Yes NO NAME AVAILABLE 71519 DRUG N/A N/A Yes NO NAME AVAILABLE 56329 DRUG N/A N/A Yes No Known Drug Allergies [id number] Drug Allergy Unknown N/A 05/06/2012 Medications Medication [...] 06/07/2018 06/08/2018 Oral 600 EVERY 8 HOURS [id number]-PZKSO PERTUSSIS 5-2-15.5 LF-MCG/0.5 IM SUSP 06/07/2018 Intramuscular [...] gestation of 05/29/2018 JIN JAY S V 978936 Abdominal Pain 05/29/2018 PIERRE JIN S F O26.893 Other specified related conditions, third trimester 05/29/2018 PIERRE JIN S F R10.9 Unspecified abdominal pain 05/29/2018 PIERRE JIN S F Z3A.36 36 weeks gestation of 05/29/2018 PIERRE JIN S F Z79.82 winemaker (current) use of aspirin 06/11/2018 CARISSA DOTSON V 708724 Hypertension 06/11/2018 CARISSA DOTSON O32.6XX0 Maternal care [...] pre-eclampsia, unspecified trimester 08/17/2018 WALI SIFUENTES V 385903 Chest Pain 08/17/2018 WALI SIFUENTES V R07.9 [...] Procedures Code Description Performed By Performed On CMA785 HCG, QUANTITATIVE, 11/01/2017 HMM535 AMB REFERRAL TO MATERNAL MEDICINE 02/07/2018 18101 [place] NON-STRESS TEST 05/29/2018 [id number] Extraction of Products of Conception, Low, Open Approach 06/07/2018 Results Test Result Range HCG, QUANTITATIVE, - 11/01/17 14:42 B-HCG QUANTITATIVE 25977 mIU/mL <=4 CBC WITH AUTO DIFFERENTIAL - [...] RED CELL DISTRIBUTION WIDTH 12.3 % 11.9-15.5 3402890 11.2 10E9/L 3.5-10.5 2525831 3.40 10E9/L 0.90-2.90 2962102 0.78 10E9/L 0.30-0.90 8127426 0.14 10E9/L 0.05-0.50 0817326 6.87 10E9/L 1.70-7.00 0478119 0.04 10E9/L 0.00-0.30 9611788 0 % HCG, QUANTITATIVE, - 11/09/17 01:09 B-HCG QUANTITATIVE 38511 mIU/mL <=4 TYPE AND SCREEN - 11/09/17 01:09 ABORH O POS ANTIBODY SCREEN NEG TRICHOMONAS RAPID TEST - 11/09/17 01:35 4591300 Negative Negative, Invalid CHLAMYDIA TRACHOMATIS AMPLIFIED PROBE - 11/09/17 01:35 [id number] Negative Negative NEISSERIA GONORRHOEAE AMPLIFIED PROBE - 11/09/17 01:35 9510510 Negative Negative GRAM STAIN, ONLY - 11/09/17 01:36 [id number] No evidence of Bacterial Vaginosis HCG, QUANTITATIVE, - 11/10/17 10:03 B-HCG QUANTITATIVE 53210 mIU/mL <=4 CHLAMYDIA TRACHOMATIS AMPLIFIED PROBE - 12/13/17 10:40 0723491 Negative Negative NEISSERIA GONORRHOEAE AMPLIFIED PROBE - 12/13/17 10:40 [id number] Negative Negative PAP, LIQUID-BASED - 12/13/17 10:40 [id number] Result to be found under pathology section [...] RED CELL DISTRIBUTION WIDTH 12.5 % 11.9-15.5 7849999 9.1 10E9/L 3.5-10.5 7247554 2.34 10E9/L 0.90-2.90 2649602 0.69 10E9/L 0.30-0.90 4543704 0.13 10E9/L 0.05-0.50 1397105 5.91 10E9/L 1.70-7.00 9577717 0.04 10E9/L 0.00-0.30 0900256 0 % TYPE AND SCREEN - 12/13/17 12:44 ABORH O POS ANTIBODY SCREEN NEG HEPATITIS B SURFACE ANTIGEN - 12/13/17 12:44 HEPATITIS B SURFACE ANTIGEN INTERPRETATION Non-reactive Non- reactive RUBELLA ANTIBODY, IGG - 12/13/17 12:44 RUBELLA SCREEN 23.80 IU/mL GEST. GLUCOSE SCREEN - 12/13/17 12:44 GEST. GLUCOSE SCREEN 82 mg/dL <=139 HIV-1/2 ANTIBODY, HIV-1 P24 ANTIGEN - 12/13/17 12:44 5395575 Non-Reactive Non-Reactive RPR - 12/13/17 12:44 RPR Non-Reactive Non-Reactive URINE CULTURE - 12/13/17 12:44 6341652 [place] Count>05479 <560032 cfu/mL of at least 2 organisms suggestive of contamination PREPARENT STANDARD - 12/13/17 12:44 [id number] See scanned Progenity report PROTEIN / CREATININE RATIO, URINE - 02/16/18 14:25 CREATININE URINE 163.4 mg/dL PROTEIN URINE 8.0 mg/dL 0176641 0.05 <0.16 CBC WITHOUT DIFFERENTIAL - 03/28/18 12:12 HEMATOCRIT 36.3 % 34.9-44.5 HEMOGLOBIN 11.9 g/dL 12.0-15.5 MEAN CORPUSCULAR HEMOGLOBIN 30.3 pg 26.0-34.0 MEAN CORPUSCULAR HEMOGLOBIN CONC 32.8 g/dL 31.0-37.0 MEAN CORPUSCULAR VOLUME 92.4 fL 81.6-98.3 PLATELET COUNT 309 10E9/L 150-450 RED BLOOD CELL COUNT 3.93 10E12/L 3.90-5.03 RED CELL DISTRIBUTION WIDTH 12.9 % 11.9-15.5 9146992 11.2 10E9/L 3.5-10.5 GEST. GLUCOSE SCREEN - 03/28/18 12:12 GEST. GLUCOSE SCREEN 107 mg/dL <=139 PROTEIN, URINE, 24 HOUR - 04/06/18 06:15 24 HR URINE VOLUME 1600 mL 800-1,800 PROTEIN 24 HOUR URINE mg/24h 0-149 PROTEIN URINE < mg/dL GROUP B BETA STREP SCREEN - 05/31/18 08:15 [id number] Negative PERFORM URINE SCREEN, AUTOMATED - 06/07/18 16:28 APPERANCE Clear BILIRUBIN 1+ Negative COLOR Dark Yellow GLUCOSE Negative Negative HEMOGLOBIN Negative Negative KETONES Trace Negative LEUKOESTERASE Negative Negative NITRATE Negative Negative PH-URINE 6.0 5.0-8.0 PROTEIN 1+ Negative SPECIFIC GRAVITY 1.020 1.003-1.030 2239 0.2 EU <=0.2 PROTEIN / CREATININE RATIO, URINE - 06/07/18 17:22 CREATININE URINE 240.8 mg/dL PROTEIN URINE 14.1 mg/dL 3798457 0.06 <0.16 CBC WITH AUTO DIFFERENTIAL - [...] RED CELL DISTRIBUTION WIDTH 12.8 % 11.9-15.5 0728803 11.8 10E9/L 3.5-10.5 5115738 2.19 10E9/L 0.90-2.90 6147270 0.65 10E9/L 0.30-0.90 5817859 0.07 10E9/L 0.05-0.50 2904013 8.85 10E9/L 1.70-7.00 3856093 0.03 10E9/L 0.00-0.30 6735799 0 % URIC ACID - 06/07/18 18:19 [...] RED CELL DISTRIBUTION WIDTH 13.2 % 11.9-15.5 9427775 13.5 10E9/L 3.5-10.5 5328608 2.40 10E9/L 0.90-2.90 2583101 0.63 10E9/L 0.30-0.90 4964550 0.20 10E9/L 0.05-0.50 5915829 10.18 10E9/L 1.70-7.00 5196819 0.04 10E9/L 0.00-0.30 0362793 0 % COMPREHENSIVE METABOLIC PANEL - 08/17/18 [...] EU/dL 0.2 WBC UA 4-10 /hpf 0-3 0033496 Negative Negative 5685801 5 /lpf Complete urinalysis with reflex to culture - 11/04/18 18:12 Urine color determination YELLOW NRG Urine clarity determination SLIGHTLY CLOUDY NRG Urine pH measurement by test strip 7 5-9 Specific gravity of urine by test strip 1.005 1.016-1.022 Urine protein assay by test strip, semi-quantitative 1+ NEGATIVE Urine glucose detection by automated test strip NEGATIVE NEGATIVE Erythrocytes detection in urine sediment by light microscopy 5+ NEGATIVE Urine ketones detection by automated test strip NEGATIVE NEGATIVE Urine nitrite detection by test strip NEGATIVE NEGATIVE Urine total bilirubin detection by test strip 1+ NEGATIVE Urine urobilinogen measurement by automated test strip (mass/volume) 4 mg/dL NORMAL Urine leukocyte esterase detection by dipstick 1+ NEGATIVE Automated urine sediment erythrocyte count by microscopy (number/high power field) NONE NRG Automated urine sediment leukocyte count by microscopy (number/high power field) [HPF] NRG Bacteria detection in urine sediment by light microscopy MODERATE NRG Squamous epithelial cells detection in urine sediment by light microscopy 25-50 NRG Crystals detection in urine sediment by light microscopy NONE NRG Casts detection in urine sediment by light microscopy NONE NRG Mucus detection in urine sediment by light microscopy NEGATIVE NRG Complete urinalysis with reflex to culture YES NRG Complete blood count (CBC) with automated white blood cell (WBC) differential - 11/04/18 18:16 Blood leukocytes automated count (number/volume) 4.7 10*3/uL 4.3-11.0 Blood erythrocytes automated count (number/volume) 4.98 10*6/uL 4.35-5.85 Venous blood hemoglobin measurement (mass/volume) 13.4 g/dL 11.5-16.0 Blood hematocrit (volume fraction) 41 % 35-52 Automated erythrocyte mean corpuscular volume 81 [foz_us] 80-99 Automated erythrocyte mean corpuscular hemoglobin (mass per erythrocyte) 27 pg 25-34 Automated erythrocyte mean corpuscular hemoglobin concentration measurement (mass/volume) 33 g/dL 32-36 Automated erythrocyte distribution width ratio 13.8 % 10.0- 14.5 Automated blood platelet count (count/volume) 310 10*3/uL 130-400 Automated blood platelet mean volume measurement 10.8 [foz_us] 7.4-10.4 Automated blood neutrophils/100 leukocytes 52 % 42-75 Automated blood lymphocytes/100 leukocytes 37 % 12-44 Blood monocytes/100 leukocytes 9 % 0-12 Automated blood eosinophils/100 leukocytes 2 % 0-10 Automated blood basophils/100 leukocytes 0 % 0-10 Blood neutrophils automated count (number/volume) 2.5 10*3 1.8-7.8 Blood lymphocytes automated count (number/volume) 1.7 10*3 1.0-4.0 Blood monocytes automated count (number/volume) 0.4 10*3 0.0- 1.0 Automated eosinophil count 0.1 10*3/uL 0.0-0.3 Automated blood basophil count (count/volume) 0.0 10*3/uL 0.0-0.1 Comprehensive metabolic panel - 11/04/18 18:16 Serum or plasma sodium measurement (moles/volume) 138 mmol/L 135-145 Serum or plasma potassium measurement (moles/volume) 4.5 mmol/L 3.6-5.0 Serum or plasma chloride measurement (moles/volume) 103 mmol/L 98-107 Carbon dioxide 27 mmol/L 21-32 Serum or plasma anion gap determination (moles/volume) 8 mmol/L 5-14 Serum or plasma urea nitrogen measurement (mass/volume) 11 mg/dL 7-18 Serum or plasma creatinine measurement (mass/volume) 1.00 mg/dL 0.60-1.30 Serum or plasma urea nitrogen/creatinine mass ratio 11 NRG Serum or plasma creatinine measurement with calculation of estimated glomerular filtration rate > NRG Serum or plasma glucose measurement (mass/volume) 101 mg/dL 70-105 Serum or plasma calcium measurement (mass/volume) 9.5 mg/dL 8.5-10.1 Serum or plasma total bilirubin measurement (mass/volume) 2.2 mg/dL 0.1-1.0 Serum or plasma alkaline phosphatase measurement (enzymatic activity/volume) 273 U/L 40-136 Serum or plasma aspartate aminotransferase measurement (enzymatic activity/volume) 827 U/L 5-34 Serum or plasma alanine aminotransferase measurement (enzymatic activity/volume) 659 U/L 0-55 Serum or plasma protein measurement (mass/volume) 7.3 g/dL 6.4-8.2 Serum or plasma albumin measurement (mass/volume) 4.1 g/dL 3.2-4.5 CALCIUM CORRECTED 9.4 mg/dL 8.5-10.1 Serum or plasma amylase measurement (enzymatic activity/volume) - 11/04/18 18:16 Serum or plasma amylase measurement (enzymatic activity/volume) 23 U/L 25-125 Lipase - 11/04/18 18:16 Lipase 15 U/L 8-78 Radiology Report from [id number] on 04/12/2018 15:39:20 Results from a Maternal Medicine study have been reported below.* [employer] users: Click "Open ViewPoint Report" link under "Linked Documents" section.* [facility] users: View this result from [employer].* FAX Recipients: Blank page may follow report. Contact [facility] at [phone] if illegible or missing page. Radiology Report from [id number] on 05/10/2018 16:38:56 Results from a Maternal Medicine study have been reported below.* [employer] users: Click "Open ViewPoint Report" link under "Linked Documents" section.* [facility] users: View this result from [employer].* FAX Recipients: Blank page may follow report. Contact [facility] at [phone] if illegible or missing page. Radiology Report from [id number] on 06/07/2018 15:53:26 Results from a Maternal Medicine study have been reported below.* [employer] users: Click "Open ViewPoint Report" link under "Linked Documents" section.* [facility] users: View this result from [employer].* FAX Recipients: Blank page may follow report. Contact [facility] at [phone] if illegible or missing page. Radiology Report [...] Status Pt. Type Provider Facility Loc./Unit Complaint [id number] 11/01/2018 11:20:00 11/01/2018 23:59:59 [id number] 04/05/2013 07:15:00 04/05/2013 10:23:00 DIS Emergency RACHEL CARRENO, SALLY Crane [facility] ER ALLERGIC REACTION [id number] 12/31/2012 11:16:00 12/31/2012 23:59:59 CLS Outpatient [id number] 11/04/2018 19:30:00 ACT Inpatient LUTHER DICK DO [facility] 4TH CHOLELITHIASIS [id number] 06/15/2012 14:54:00 Document Registration [id number] 05/06/2012 09:43:00 Document Registration [id number] 07/21/2018 11:17:28 07/21/2018 23:59:59 CLS Outpatient NORCATURJIN [place] [employer] [facility] [id number] 06/17/2018 11:42:37 06/17/2018 23:59:59 CLS Outpatient [place] [facility] [id number] 06/07/2018 09:09:34 06/07/2018 23:59:59 CLS Outpatient PIERRE JIN [facility] FOUR SLIDE MACHINE OPERATOR [facility] [id number] 05/31/2018 08:17:10 05/31/2018 23:59:59 CLS Outpatient [place] [employer] [facility] [id number] 05/31/2018 08:01:12 05/31/2018 23:59:59 CLS Outpatient JIN JAY [place] [employer]ACHINE OPERATOR [facility] [id number] 05/25/2018 08:09:07 05/25/2018 23:59:59 CLS Outpatient JIN JAY S [place] [employer]ACHINE OPERATOR [facility] [id number] 05/10/2018 10:47:04 05/10/2018 23:59:59 CLS Outpatient [place] [employer] [facility] [id number] 05/10/2018 08:59:23 05/10/2018 23:59:59 CLS Outpatient JIN JAY S [place] [employer]ACHINE OPERATOR [facility] [id number] 04/26/2018 11:10:29 04/26/2018 23:59:59 CLS Outpatient JIN JAY S [place] [employer]ACHINE [facility]PER[facility] [id number] 04/13/2018 11:28:40 04/13/2018 23:59:59 CLS Outpatient JIN JAY S [place] [employer]ACHINE [facility]PER[facility] [id number] 04/06/2018 11:06:36 04/06/2018 23:59:59 CLS Outpatient [place] [employer]ACHINE [facility]PER[facility] [id number] 03/28/2018 10:58:38 03/28/2018 23:59:59 CLS Outpatient [place] [employer] [facility]PER[facility] [id number] 03/28/2018 10:57:11 03/28/2018 23:59:59 CLS Outpatient JIN JAY S [place] [employer]INE [facility]PER[facility] [id number] 03/08/2018 10:03:31 03/08/2018 23:59:59 CLS Outpatient NISREEN, TORY Crane [place] [employer] SLIDE MACHINE OPERATOR [facility] [id number] 02/07/2018 14:47:33 02/07/2018 23:59:59 CLS Outpatient ZACKARY FERNANDEZ [place] [employer]ACHINE OPER[employer] [facility] [id number] 02/07/2018 14:46:47 02/07/2018 23:59:59 CLS Outpatient [place] [employer]ACHINE [facility]PERATOR [facility] [id number] 01/10/2018 09:21:27 01/10/2018 23:59:59 CLS Outpatient [place] [employer] MACHINE OPERATOR [facility] [id number] 01/10/2018 08:51:04 01/10/2018 23:59:59 CLS Outpatient CELIA BLACKMAN [place] [employer] MACHINE OPERATOR [facility] [id number] 12/13/2017 11:22:01 12/13/2017 23:59:59 CLS Outpatient [place] [employer] SL[employer] MACHINE OPERATOR [facility] [id number] 12/13/2017 10:29:48 12/13/2017 23:59:59 CLS Outpatient JAYSON DENISE [place] [employer]ACHINE OPERATOR [facility] [id number] 11/19/2017 15:18:29 11/19/2017 23:59:59 CLS Outpatient [place] [employer]INE OPERATOR [facility] [id number] 11/10/2017 09:58:23 11/10/2017 23:59:59 CLS Outpatient [place] [employer]INE OPERATOR [facility] [id number] 11/05/2017 15:16:37 11/05/2017 23:59:59 CLS Outpatient [place] [employer]ACHINE OPERATOR [facility] [id number] 11/01/2017 14:37:38 11/01/2017 23:59:59 CLS Outpatient [place] [employer] MACHINE OPERATOR WES [id number] 10/11/2018 10:13:45 10/11/2018 23:59:59 CLS Outpatient Linnette Lubin [id number] 08/16/2018 23:55:58 08/17/2018 02:36:00 DIS Emergency WALI SIFUENTES [facility] [id number] 06/20/2018 11:10:51 06/20/2018 23:59:00 DIS Outpatient [facility] [id number] 06/13/2018 12:17:47 06/13/2018 23:59:00 DIS Outpatient JIN JAY [facility] [id number] 06/12/2018 12:43:43 06/12/2018 23:59:00 DIS Outpatient JIN JAY [facility] [id number] 06/07/2018 16:09:00 06/11/2018 15:21:00 DIS Inpatient CARISSA DOTSON [place] [address] [id number] 06/07/2018 15:08:04 06/07/2018 23:59:59 CLS Outpatient [facility] [id number] 06/07/2018 15:00:29 06/07/2018 23:59:59 CLS Outpatient [facility] [id number] 06/07/2018 14:59:19 06/07/2018 23:59:59 CLS Outpatient CHAUNCEY JUAREZ [facility] [id number] 05/29/2018 06:05:23 05/29/2018 23:59:59 CLS Outpatient JIN JAY [facility] [id number] 05/29/2018 03:34:00 05/29/2018 05:55:00 DIS Outpatient JIN JAY [address] [id number] 05/10/2018 15:13:28 05/10/2018 23:59:59 CLS Outpatient [facility] [id number] 05/10/2018 14:56:02 05/10/2018 23:59:59 CLS Outpatient [facility] [id number] 05/10/2018 14:55:42 05/10/2018 23:59:59 CLS Outpatient REILLY ROMERO [facility] [id number] 04/12/2018 14:10:23 04/12/2018 23:59:59 CLS Outpatient [facility] [id number] 04/12/2018 13:48:14 04/12/2018 23:59:59 CLS Outpatient [facility] [id number] 04/12/2018 13:47:32 04/12/2018 23:59:59 CLS Outpatient REILLY ROMERO [facility] [id number] 03/16/2018 13:04:32 03/16/2018 23:59:59 CLS Outpatient [facility] [id number] 03/16/2018 12:48:22 03/16/2018 23:59:59 CLS Outpatient [facility] [id number] 03/16/2018 12:47:58 03/16/2018 23:59:59 CLS Outpatient REILLY ROMERO [facility] [id number] 02/16/2018 13:02:33 02/16/2018 23:59:59 CLS Outpatient [facility] [place] [id number] 02/16/2018 12:24:03 02/16/2018 23:59:59 CLS Outpatient [facility] [id number] 02/16/2018 12:23:39 02/16/2018 23:59:59 CLS Outpatient REILLY ROMERO [facility] [id number] 11/09/2017 00:58:07 11/09/2017 02:45:00 DIS Emergency PRESSLEYCATHLEEN [facility] [id number] 05/04/2017 20:59:14 05/04/2017 21:17:00 DIS Emergency PRESSLEYCATHLEEN [facility] EMD [id number] 10/27/2015 16:32:47 10/27/2015 23:59:59 CLS Outpatient VICK MIDDLETON [facility] [id number] 08/17/2018 01:11:06 Document Registration [id number] 06/07/2018 20:14:18 Document Registration [id number] 06/02/2018 10:40:15 Document Registration [id number] 04/06/2018 13:28:24 Document Registration [id number] 03/28/2018 14:16:35 Document Registration [id number] 12/13/2017 14:32:18 Document Registration [id number] 11/10/2017 13:29:03 Document Registration [id number] 11/01/2017 18:53:52 Document Registration
[2018-11-04] MEDS ORDERED: D5 1/2 NS W/KCL 20 MEQ/L 1,000 ML IV ONE (20:10)
--- NOTE | 2018-11-04 20:10 | NUR ---
VICK SKAGGS admitted to room 416-1, with an admitting diagnosis of CHOLELITHIASIS, on 11/04/18 from er via , accompanied by ER STAFF. VICK SKAGGS introduced to surroundings, call light, bed controls, phone, TV, temperature control, lights, meal times, smoking policy, visitor policy, side rail policy, bathrooms and showers. Patient Rights given to patient in the handbook. VICK SKAGGS verbalizes understanding that [facility] is not responsible for the loss or damage to any personal effects or valuables that are kept in the patients possession during their hospitalization.
[2018-11-04] MEDS ORDERED: KETOROLAC 30 MG/ML VIAL IV PRN (20:30)
[2018-11-04] MEDS ORDERED: ONDANSETRON 4 MG/2 ML (SDV) Z0FRAN IV PRN (20:30)
[2018-11-04 20:31] VITALS: BP 134/66
[2018-11-04 20:33] VITALS: BP 134/66
[2018-11-04] MEDS: D5 1/2 NS W/KCL 20 MEQ/L 1,000 ML IV SCH (20:37)
[2018-11-04 23:56] VITALS: BP_SYST 136; BP_SYST 155; BP_DIAS 103; BP_DIAS 89
[2018-11-05] VITALS (11 sets, daily range): BP systolic 114–134; BP diastolic 68–83
[2018-11-05] MEDS: D5 1/2 NS W/KCL 20 MEQ/L 1,000 ML IV SCH ×2 (03:41→14:41)
[2018-11-05 05:07] LABS: BASOPHILS % (AUTO) 0 % (0-10); EOSINOPHILS # (AUTO) 0.1 10^3/uL (0.0-0.3); EOSINOPHILS % (AUTO) 3 % (0-10); HEMATOCRIT 38 % (35-52); HEMOGLOBIN 12.4 G/DL (11.5-16.0); LYMPHOCYTES # (AUTO) 2.1 X 10^3 (1.0-4.0); LYMPHOCYTES % (AUTO) 43 % (12-44); MEAN CORPUSCULAR HEMOGLOBIN 27 PG (25-34); MEAN CORPUSCULAR HGB CONC 33 G/DL (32-36); MEAN CORPUSCULAR VOLUME 82 FL (80-99); MEAN PLATELET VOLUME 11.1 FL (7.4-10.4); MONOCYTES # (AUTO) 0.4 X 10^3 (0.0-1.0); MONOCYTES % (AUTO) 8 % (0-12); NEUTROPHILS # (AUTO) 2.2 X 10^3 (1.8-7.8); NEUTROPHILS % (AUTO) 46 % (42-75); PLATELET COUNT 265 10^3/uL (130-400); RED CELL DISTRIBUTION WIDTH 13.9 % (10.0-14.5); WHITE BLOOD COUNT 4.8 10^3/uL (4.3-11.0)
[2018-11-05 05:31] LABS: ALANINE AMINOTRANSFERASE 606 U/L (0-55); ALBUMIN 3.7 GM/DL (3.2-4.5); ALKALINE PHOSPHATASE 287 U/L (40-136); AMYLASE 42 U/L (25-125); BILIRUBIN,TOTAL 2.5 MG/DL (0.1-1.0); BUN/CREATININE RATIO 12; CARBON DIOXIDE 20 MMOL/L (21-32); CHLORIDE 107 MMOL/L (98-107); CREATININE SERUM 0.93 MG/DL (0.60-1.30); GFR ESTIMATED > 60; GLUCOSE 106 MG/DL (70-105); LIPASE 71 U/L (8-78); SODIUM 138 MMOL/L (135-145); TOTAL PROTEIN 6.5 GM/DL (6.4-8.2)
[2018-11-05] MEDS ORDERED: PANTOPRAZOLE 40 MG (PROTONIX) VIAL IV SCH (09:00)
--- NOTE | 2018-11-05 10:38 | History & Physical-Surgical ---
History of Present Illness History of Present Illness Reason for visit/HPI Surgery asked to consult regarding RUQ pain and cholelithiasis. HPI per ED: PATIENT STATES THAT SHE HAS HAD "GALLBLADDER ATTACKS" SINCE BEFORE HER SECTION IN MAY. SHE HAS THEM ABOUT MONTHLY BUT HER PAIN HAS BEEN OFF AND ON CONSISTENTLY SINCE LAST NIGHT. SHE STATES THE PAIN IS SEVERE. PT ARRIVES VIA POV FROM HOME C/O "GALLBLADDER ATTACKS" C/O RUQ PAIN "THAT GOES INTO MY SHOULDERS AND UP MY BACK AND INTO MY CHEST" STATES SHE HAD A IN MAY AND HAS BEEN HAVING THIS SAME PAIN SINCE JUNE STATES SHE HAS ABOUT ONE "ATTACK" A MONTH, USUALLY LASTING AN HOUR STATES SINCE 2129 LAST NIGHT, SHE HAS HAD "5 ATTACKS" C/O NAUSEA, AND VOMITED X 1 AT 0200 NO DIARRHEA NO FEVER NO URINARY SYMPTOMS HAS CONTINUED TO EAT AND DRINK USUAL--HAD FRIED CHICKEN STRIPS TODAY AROUND 1300, AND AN PEPSI STATES SHE WENT TO ER ONE TIME WHEN IT FIRST HAPPENED, AND WAS TOLD IT WAS "PROBABLY MY GALLBLADDER" BUT NEVER FOLLOWED UP WITH ANYONE FOR IT HAS NOT TAKEN ANYTHING FOR PAIN When I spoke to pt this am she states pain is better, but she is ready to have her gallbladder removed. She thinks the pain usually occurs after fried and fatty foods. Date of Admission Nov 04, 2018 at 19:30 Time Seen by a Provider: 10:01 I consulted on this patient on 11/05/18 10:32 Attending Physician Cody London DO Admitting Physician No,Local Physician Consult Allergies and Home Medications Allergies Coded Allergies: No Known Drug Allergies (Unverified , 05/06/12) Home Medications No Active Prescriptions or Reported Meds Patient Home Medication List Home Medication List Reviewed: Yes Past Lkvlmvd-Genand-Vlnhbd Hx Patient Social History Alcohol Use: Occasionally Uses Recreational Drug Use: No Smoking Status: Never a Smoker Type Used: Cigarettes 2nd Hand Smoke Exposure: No Recent Foreign Travel: No Contact w/Someone Who Travel: No Recent Infectious Disease Expo: No Recent Hopitalizations: No Seasonal Allergies Seasonal Allergies: No Surgeries History of Surgeries: Yes Surgeries: Section, Tonsillectomy Respiratory History of Respiratory Disorde: No Cardiovascular History of Cardiac Disorders: No Neurological History of Neurological Disord: No Reproductive System : No Hx Reproductive Disorders: No Genitourinary History of Genitourinary Disor: No Gastrointestinal History of Gastrointestinal Di: No Musculoskeletal History of Musculoskeletal Dis: No Endocrine History of Endocrine Disorders: No HEENT History of HEENT Disorders: No HEENT Disorders: Tonsilitis Loss of Vision: Denies Hearing Impairment: Denies Cancer History of Cancer: No Psychosocial History of Psychiatric Problem: No Integumentary History of Skin or Integumenta: Yes Skin/Integumentary Disorders: Recent Skin Changes Blood Transfusions History of Blood Disorders: No Adverse Reaction to a Blood Tr: No Family Medical History Significant Family History: Hypertension Family Medial History: FH: breast cancer Maternal Grandmother Hypertension 19 FATHER Kidney stones 19 FATHER Review of Systems Constitutional: chills, malaise, weakness EENTM: No blurred vision, No double vision, No mouth pain, No mouth swelling, No throat swelling Respiratory: No cough, No dyspnea on exertion Cardiovascular: No chest pain, No edema, No palpitations Gastrointestinal: abdominal pain; No dysphagia, No jaundice; nausea Genitourinary: No dysuria, No frequency, No hematuria : No Musculoskeletal: joint pain, muscle pain, muscle stiffness Skin: No change in hair/nails; rash Psychiatric/Neurological: Denies Anxiety, Denies Depressed, Denies Seizure, Denies Tremors pt denies any abnormal bleeding or bruising Physical Exam Vital Signs Vital Signs - First Documented 11/04/18 17:41 Temp 98.0 Pulse 62 Resp 18 B/P (MAP) 159/91 (113) Pulse Ox 99 O2 Delivery Nasal Cannula Capillary Refill : Less Than 3 Seconds Height, Weight, BMI Height: 5'7.00" Weight: 404lbs. 3.0oz. [phone]; BMI Method:Actual General Appearance: No Apparent Distress, Obese Eyes: Bilateral Eye PERRL, Bilateral Eye EOMI HEENT: Pharynx Normal, Moist Mucous Membranes; No Pale Conjunctivae (L), No Pale Conjunctivae (R) Neck: Full Range of Motion, Normal Inspection, Non Tender, Supple Respiratory: Chest Non Tender, Lungs Clear, Normal Breath Sounds, No Accessory Muscle Use, No Respiratory Distress Cardiovascular: Regular Rate, Rhythm, No Edema, No Murmur Gastrointestinal: Normal Bowel Sounds, No Organomegaly, Soft, Tenderness (RUQ) Back: No CVA Tenderness, No Vertebral Tenderness Extremity: Normal Capillary Refill, Normal Inspection, Normal Range of Motion, Non Tender, No Calf Tenderness, No Pedal Edema Neurologic/Psychiatric: Alert, Oriented x3, No Motor/Sensory Deficits, Normal Mood/Affect, reconditioner II-XII Norm as Tested Skin: Normal Color, Warm/Dry Lymphatic: No Adenopathy (neck, axilla or groin) Data Review Labs Laboratory Tests 11/04/18 18:12: Urine Color YELLOW, Urine Clarity SLIGHTLY CLOUDY, Urine pH 7, Urine Specific [place] 1.005L, Urine Protein 1+H, Urine Glucose (UA) NEGATIVE, Urine Ketones NEGATIVE, Urine Nitrite NEGATIVE, Urine Bilirubin 1+H, Urine Urobilinogen 4H, Urine Leukocyte Esterase 1+H, Urine RBC (Auto) 5+H, Urine RBC NONE, Urine WBC 10-25H, Urine Squamous Epithelial Cells 25-50H, Urine Crystals NONE, Urine Bacteria MODERATEH, Urine Casts NONE, Urine Mucus NEGATIVE, Urine Culture Indicated YES 11/04/18 18:16: White Blood Count 4.7, Red Blood Count 4.98, Hemoglobin 13.4, Hematocrit 41, Mean Corpuscular Volume 81, Mean Corpuscular Hemoglobin 27, Mean Corpuscular Hemoglobin Concent 33, Red Cell Distribution Width 13.8, Platelet Count 310, Mean Platelet Volume 10.8H, Neutrophils (%) (Auto) 52, Lymphocytes (%) (Auto) 37, Monocytes (%) (Auto) 9, Eosinophils (%) (Auto) 2, Basophils (%) (Auto) 0, Neutrophils # (Auto) 2.5, Lymphocytes # (Auto) 1.7, Monocytes # (Auto) 0.4, Eosinophils # (Auto) 0.1, Basophils # (Auto) 0.0, Sodium Level 138, Potassium Level 4.5, Chloride Level 103, Carbon Dioxide Level 27, Anion Gap 8, Blood Urea Nitrogen 11, Creatinine 1.00, Estimat Glomerular Filtration Rate > 60, BUN/Creatinine Ratio 11, Glucose Level 101, Calcium Level 9.5, Corrected Calcium 9.4, Total Bilirubin 2.2H, Aspartate Amino Transf (AST/SGOT) 827H, Alanine Aminotransferase (ALT/SGPT) 659H, Alkaline Phosphatase 273H, Total Protein 7.3, Albumin 4.1, Amylase Level 23L, Lipase 15 11/05/18 04:43: White Blood Count 4.8, Red Blood Count 4.65, Hemoglobin 12.4, Hematocrit 38, M sergio Corpuscular Volume 82, Mean Corpuscular Hemoglobin 27, Mean Corpuscular Hemoglobin Concent 33, Red Cell Distribution Width 13.9, Platelet Count 265, Mean Platelet Volume 11.1H, Neutrophils (%) (Auto) 46, Lymphocytes (%) (Auto) 43, Monocytes (%) (Auto) 8, Eosinophils (%) (Auto) 3, Basophils (%) (Auto) 0, Neutrophils # (Auto) 2.2, Lymphocytes # (Auto) 2.1, Monocytes # (Auto) 0.4, Eosinophils # (Auto) 0.1, Basophils # (Auto) 0.0, Sodium Level 138, Potassium Level 4.0, Chloride Level 107, Carbon Dioxide Level 20L, Anion Gap 11, Blood Urea Nitrogen 11, Creatinine 0.93, Estimat Glomerular Filtration Rate > 60, BUN/Creatinine Ratio 12, Glucose Level 106H, Calcium Level 9.0, Corrected Calcium 9.2, Total Bilirubin 2.5H, Aspartate Amino Transf (AST/SGOT) 471H, Alanine Aminotransferase (ALT/SGPT) 606#H, Alkaline Phosphatase 287H, Total Protein 6.5, Albumin 3.7, Amylase Level 42, Lipase 71 Assessment/Plan Assessment/Plan Admission Diagonsis Acute on Chronic Cholelithiasis/Cholecystitis Morbid Obesity Admission Status: Observation Assessment/Plan Acute on Chronic Cholelithiasis/Cholecystitis Morbid Obesity Pt was admitted last night and started on IV fluids, IV abx, pain control, anti- emetics and npo with the plan to cool down the attack and schedule surgery today. Will now take her to the OR for Laparoscopic Cholecystectomy, possible cholangiogram, possible open. Discussed risks and complications with pt; including but not limited to pain, bleeding, infection, scar, damage to bowel or bile ducts and need for further procedure. All questions answered to her and her family's satisfaction. Clinical Quality Measures DVT/VTE Risk/Contraindication: Risk Factor Score Per Nursin RFS Level Per Nursing on Admit: 1=Low/No VTE PPX CODY LONDON DO Nov 05, 2018 10:38
[2018-11-05] MEDS ORDERED: ceFAZolin INJECTION 3,000 MG in NS (IVPB) 100 ML IV ONE (10:45)
[2018-11-05] MEDS ORDERED: LACTATED RINGERS 1,000 ML IV PRN (10:53)
[2018-11-05] MEDS ORDERED: LIDOCAINE PF 2% 5 ML (XYLOCAINE) VIAL ONE (11:04)
[2018-11-05] MEDS ORDERED: ROCURONIUM 10 MG/ML 5 ML SYRINGE IV ONE (11:04)
[2018-11-05] MEDS ORDERED: proPOfol 200 MG/20 ML (DIPRIVAN) VIAL IV ONE (11:04)
[2018-11-05] MEDS ORDERED: fentaNYL INJECTION 100 MCG/2 ML AMP ONE (11:04)
[2018-11-05] MEDS ORDERED: ONDANSETRON 4 MG/2 ML (SDV) Z0FRAN ONE (11:04)
[2018-11-05] MEDS ORDERED: MIDAZOLAM 2 MG/2 ML (VERSED) VIAL ONE (11:05)
[2018-11-05] MEDS ORDERED: SEVOFLURANE (ULTANE) 15 ML INHAL SOLN ONE (11:07)
--- NOTE | 2018-11-05 11:10 | NUR ---
Pt to OR via bed
[2018-11-05] MEDS ORDERED: BUP/EPI 0.5% 1:200,000 (SENSORCAINE) 30 ML VIAL ONE (11:11)
[2018-11-05] MEDS ORDERED: LIDOCAINE 1% INJ 20 ML 20 ML VIAL ONE (11:11)
[2018-11-05] MEDS ORDERED: IOPAMIDOL 61% 30 ML (ISOVUE 300) VIAL IV ONE (11:12)
[2018-11-05] MEDS ORDERED: ceFAZolin INJECTION 3,000 MG ONE (11:39)
[2018-11-05] MEDS ORDERED: NS (IVPB) 250 ML ONE (11:50)
[2018-11-05] MEDS ORDERED: DESFLURANE (SUPRANE) 15 ML INHAL SOLN ONE ×6 (11:50→12:56)
--- NOTE | 2018-11-05 12:42 | Diagnostic Imaging Report ---
Indication: Cholecystectomy 34 seconds of fluoroscopy was used for the cholecystectomy and cholangiogram in surgery. Images show a normal appearance of the common bile duct with no constant filling defect in the common bile duct. There are several nonobstructing filling defects in the left hepatic lobe intrahepatic bile duct which could be artifact, a bubble or gallstone. There is flow of contrast into the duodenum. Impression: The common bile duct is patent with flow into the duodenum. There are several nonobstructing defects seen in the left hepatic lobe bile ducts. Dictated by: Dictated on workstation # [id number]
[2018-11-05] MEDS ORDERED: GLYCOPYRROLATE 0.2 MG/ML (ROBINUL) 2 ML VIAL ONE (12:47)
[2018-11-05] MEDS ORDERED: NEOSTIGMINE 1 MG/ML 5 ML SYRINGE ONE (12:47)
--- NOTE | 2018-11-05 12:55 | Progress Note-Post Operative ---
Post-Operative Progess Note Surgeon (s)/Tenter Feeder (s) Surgeon LUTHER DICK DO Tenter Feeder: NONE Pre-Operative Diagnosis Acute on Chronic Cholecystitis/Cholelithiasis Post-Operative Diagnosis same with possible choledochalithiasis Procedure & Operative Findings Date of Procedure 11/05/18 Procedure Performed/Findings Lap tammie with IOC Anesthesia Type GET Estimated Blood Loss Estimated blood loss (mL): scant Specimens/Packing Specimens Removed GB and contents LUTHER DICK DO Nov 05, 2018 12:55
--- NOTE | 2018-11-05 12:57 | Discharge Inst-Surgical ---
Discharge Inst-Surgical Depart Medication/Instructions New, Converted or Re-Newed RX: RX Given to Pt/Family Patient Instructions Follow up Appt: Make appointment for 1 week. [phone] Instructions: No lifting greater than 20 pounds. No strenuous activity. May shower in 24 hours, no tub bath or soaking. Use incentive spirometer at home as directed. No Smoking Skin/Wound Care: May remove bandages in am. You need to leave the Dermabond on incision it will fall off on it's own. Symptoms to Report: Appetite Changes, Extremity Discoloration, Numbness/Tingling, Swelling Increased, Bleeding Excessive, Eyesight Changes, Pain Increased, Urine Color Change, Constipation(Persistent), Fever over 101 degree F, Pain/Pressure in chest, Urinating Difficulty, Cough Up/Vomit Blood, Heart Beat Irreg/Pounding, Pain/Pressure in jaw, Cramps in feet or legs, Lightheadedness, Pain/Pressure in shoulder, Diarrhea(Persistent), Memory Changes Suddenly, Questions/Concerns, Weight gain consecutive days, Dizziness/Fainting, Nausea/Vomiting, Shortness of Breath, Weight gain over 2 pounds If questions or concerns contact your physician Or seek help at emergency department. Activity Activity as Tolerated: Yes Activity Instructions: Avoid Stress to Incision Driving Instructions: No Driving/Refer to Diet Discharge Diet: Avoid Fatty Foods, Low Fat/Low Cholesterol Diet After 24 Hours: Clear Liquid if Nauseous If Any Problems/Questions/Issu: Contact Your Physician, Go to Emergency Room Skin/Wound Care Infection Signs and Symptoms: Increased Redness, Foul Odor of Wound, Increased Drainage, Skin Itchy or Has a Rash, Increased Swelling, Temperature Above 101 F Wound Care Comment: Heating pad to shoulder or neck tonight for pain Stitches/Kae/Dermabond Dis: Dermabond Ice Pack: Ice On and Off Site (as needed for pain at incision sites) LUTHER DICK DO Nov 05, 2018 12:57
[2018-11-05] MEDS ORDERED: HYDR-3820 PO (12:58)
[2018-11-05] MEDS ORDERED: MEPERIDINE (DEMEROL) INJ 50 MG/ML IVP ONE (13:30)
[2018-11-05] MEDS ORDERED: fentaNYL INJECTION 100 MCG/2 ML AMP IVP ONE (13:30)
[2018-11-05] MEDS ORDERED: KETOROLAC 30 MG/ML VIAL IVP ONE (13:30)
[2018-11-05] MEDS ORDERED: PROMETHAZINE INJ 25 MG/ML (PHENERGAN) AMP IVP ONE (13:30)
[2018-11-05] MEDS ORDERED: ONDANSETRON 4 MG/2 ML (SDV) Z0FRAN IVP PRN (13:30)
--- NOTE | 2018-11-05 14:00 | NUR ---
Pt returned to room via bed from PACU, report received from Sylwia Maxwell RN
[2018-11-05] MEDS: fentaNYL INJECTION 100 MCG/2 ML AMP IV PRN ×2 (14:33→20:01)
--- NOTE | 2018-11-05 16:55 | OPERATIVE REPORT ---
DATE OF SERVICE: PREOPERATIVE DIAGNOSIS: Acute on chronic cholecystitis with cholelithiasis. POSTOPERATIVE DIAGNOSES: 1. Acute on chronic cholecystitis with cholelithiasis. 2. Possible choledocholithiasis. PROCEDURES PERFORMED: Laparoscopic cholecystectomy, intraoperative cholangiogram. SURGEON: Cody London DO. HVAC OPERATIONS TECHNICIAN: None. ANESTHESIA: General endotracheal tube. SPECIMEN: Gallbladder and contents. BLOOD LOSS: Scant. FLUIDS: Per Anesthesia. POSTOPERATIVE CONDITION: Stable. INDICATION FOR PROCEDURE: The patient is a 23-year-old female, who has been having right upper quadrant pain which has been going on since May, usually associated with fried and fatty food, had some mildly elevated bilirubin and some pain, it would not go away and had a previous ultrasound, which showed stones in the gallbladder. FINDINGS: The patient had adhesions to the gallbladder. The gallbladder also looked a little bit erythematous as well it was edematous and there were stones found in the cystic duct as well as possibly in the common bile duct. PROCEDURE NOTE: After informed consent was obtained, the patient was brought to the operating room, placed on the operating table in supine position. She was sterilely prepped and draped in normal fashion. Local lidocaine was used to infiltrate the skin above the umbilicus. I made the incision with #11 blade, carried down through the skin into subcutaneous tissue, deepened down to subcutaneous tissue with Bovie electrocautery down to the fascia. Fascia was incised with Bovie electrocautery, bluntly entered into the abdomen, swept the finger around, placed #0 Vicryl quafxa-dv-ogtex suture and placed an 11 mm trocar port under direct visualization, created pneumoperitoneum and then placed 3 more ports in normal fashion using local lidocaine, 11 blade for stab incision and VersaStep system, all done under direct visualization, one in the subxiphoid and two in the right upper quadrant. The patient was then placed in reverse Trendelenburg. I am able to visualize the gallbladder and some adhesions to it, grasped with the fundus and taken in superior direction and then carefully started taking these adhesions down. I then able to get down to grasp down the Gavin pouch and pulling the bowel out inferolateral direction and start dissecting out cystic duct and cystic artery. I was able to get around the cystic artery, came across the front of the cystic duct, clipped once proximally and once distally and cut with Metzenbaum scissors to move it out of the way and then carefully continued getting around the cystic duct. Once able to get around the cystic duct, able to place a clip distally and then cut detention through Metzenbaum scissors. Upon doing this, got some release of bile as well as a few stones came out. I placed a cholangiogram catheter and actually got a few more stones out and then shot a cholangiogram. It was very hard to shoot the cholangiogram, but it did get dye going down the cystic duct into the common bile duct as well as up into common hepatic and right and left hepatics, had to shoot it second time in order to get contrast to get into the small intestine. I could not tell whether there were some stones down at the distal portion at the ampulla openings of the intestine and the common bile duct, but looked like there may have been. At this point, I then removed the cholangiogram catheter, placed 2 clips proximally on the cystic duct and cut the cystic duct with Metzenbaum scissors and then removed the gallbladder from bed of liver with L-hook cautery. Once this was completely removed, placed a bag in the abdomen, placed the gallbladder in the bag and then removed this through a supraumbilical incision. Placed the port back in the abdomen, copiously irrigated with normal saline, suctioned this out, looked around, hemostasis obtained in bed of liver with no bleeding. At this point, placed the patient supine and then removed all ports under direct visualization, allowed pneumoperitoneum to escape, closed supraumbilical incision, closing the fascia with #0 Vicryl [id number]-ylmel suture. Copiously irrigated incisions with normal saline and closed the three small 5 mm incisions with single interrupted 4-0 undyed Monocryl subcuticular stitch, closed the supraumbilical incision with 5 interrupted 4-0 undyed Monocryl subcuticular sutures, cleaned and dried. Dermabond placed as well as Band-Aids. The patient then transferred to recovery room in stable condition. Sponge, instrument and needle count correct at the end of the case. Job ID: [id number] DocumentID: [id number] Dictated Date: 11/05/2018 15:06:28 Rn Assessment Date: 11/05/2018 16:54:41 Dictated By: CODY LONDON DO
--- NOTE | 2018-11-05 18:46 | Anesthesia-General Post-Op ---
General Patient Condition Mental Status/LOC: Same as Preop Cardiovascular: Satisfactory Nausea/Vomiting: Absent Respiratory: Satisfactory Pain: Controlled Complications: Absent Post Op Complications Complications None Follow Up Care/Instructions Patient Instructions None needed. Anesthesia/Patient Condition Patient Condition Patient is doing well, no complaints, stable vital signs, no apparent adverse anesthesia problems. No complications reported per nursing. RONALD MALDONADO CRNA Nov 05, 2018 18:46
--- OUTSIDE RECORDS SUMMARY | 2018-11-08 16:00 | XMS REPORT | Continuity of Care Document ---
Author Organization Unknown Address Unknown Allergies Active Description Code Type Severity Reaction Onset Reported/Identified Relationship to Patient Clinical Status Yes NO NAME AVAILABLE 95961 DRUG N/A N/A Yes NO NAME AVAILABLE 09973 DRUG N/A N/A Yes No Known Drug Allergies [id number] Drug Allergy Unknown N/A 05/06/2012 Medications Medication [...] 06/07/2018 06/08/2018 Oral 600 EVERY 8 HOURS [id number] PERTUSSIS 5-2-15.5 LF-MCG/0.5 IM SUSP 06/07/2018 Intramuscular [...] gestation of 05/29/2018 JIN JAY S V 954531 Abdominal Pain 05/29/2018 PIERRE JIN S F O26.893 Other specified related conditions, third trimester 05/29/2018 PIERRE JIN S F R10.9 Unspecified abdominal pain 05/29/2018 PIERRE JIN S F Z3A.36 36 weeks gestation of 05/29/2018 PIERRE JIN S F 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 06/11/2018 CARISSA DOTSON V 038225 Hypertension 06/11/2018 CARISSA DOTSON O32.6XX0 Maternal care [...] pre-eclampsia, unspecified trimester 08/17/2018 WALI SIFUENTES V 463693 Chest Pain 08/17/2018 WALI SIFUENTES V R07.9 Chest pain, unspecified 08/17/2018 WALI SIFUENTES V R09.1 Pleurisy 08/17/2018 WALI SIFUENTES E28.2 Polycystic ovarian syndrome 08/17/2018 WALI SIFUENTES E66.01 Morbid (severe) obesity due to excess calories (HCC) 08/17/2018 WALI SIFUENTES F32.9 Major depressive disorder, single episode, unspecified 08/17/2018 WALI SIFUENTES I10 Essential (primary) hypertension 08/17/2018 WALI SIFUENTES R06.02 Shortness of breath 08/17/2018 WLAI SIFUENTES R07.89 Other chest pain 08/17/2018 WALI SIFUENTES R09.1 Pleurisy 08/17/2018 WALI SIFUENTES Z68.44 Body mass index (bmi) 60.0-69.9, adult (HCC) Procedures Code Description Performed By Performed On HXC452 HCG, QUANTITATIVE, 11/01/2017 OHI499 AMB REFERRAL TO MATERNAL MEDICINE 02/07/2018 05784 NE NON-STRESS TEST 05/29/2018 [id number] Extraction of Products of Conception, Low, Open Approach 06/07/2018 Results Test Result Range HCG, QUANTITATIVE, - 11/01/17 14:42 B-HCG QUANTITATIVE 56264 mIU/mL <=4 CBC WITH AUTO DIFFERENTIAL - [...] RED CELL DISTRIBUTION WIDTH 12.3 % 11.9-15.5 6411607 11.2 10E9/L 3.5-10.5 2797782 3.40 10E9/L 0.90-2.90 2614610 0.78 10E9/L 0.30-0.90 8244159 0.14 10E9/L 0.05-0.50 0087607 6.87 10E9/L 1.70-7.00 0821876 0.04 10E9/L 0.00-0.30 0431199 0 % HCG, QUANTITATIVE, - 11/09/17 01:09 B-HCG QUANTITATIVE 60652 mIU/mL <=4 TYPE AND SCREEN - 11/09/17 01:09 ABORH O POS ANTIBODY SCREEN NEG TRICHOMONAS RAPID TEST - 11/09/17 01:35 1099704 Negative Negative, Invalid CHLAMYDIA TRACHOMATIS AMPLIFIED PROBE - 11/09/17 01:35 7044503 Negative Negative NEISSERIA GONORRHOEAE AMPLIFIED PROBE - 11/09/17 01:35 2926971 Negative Negative GRAM STAIN, ONLY - 11/09/17 01:36 5489956 No evidence of Bacterial Vaginosis HCG, QUANTITATIVE, - 11/10/17 10:03 B-HCG QUANTITATIVE 02607 mIU/mL <=4 CHLAMYDIA TRACHOMATIS AMPLIFIED PROBE - 12/13/17 10:40 0165278 Negative Negative NEISSERIA GONORRHOEAE AMPLIFIED PROBE - 12/13/17 10:40 2564104 Negative Negative PAP, LIQUID-BASED - 12/13/17 10:40 [id number] Result to be found under pathology section [...] RED CELL DISTRIBUTION WIDTH 12.5 % 11.9-15.5 0005680 9.1 10E9/L 3.5-10.5 8540950 2.34 10E9/L 0.90-2.90 8455649 0.69 10E9/L 0.30-0.90 5897632 0.13 10E9/L 0.05-0.50 4221644 5.91 10E9/L 1.70-7.00 3279968 0.04 10E9/L 0.00-0.30 0107865 0 % TYPE AND SCREEN - 12/13/17 12:44 ABORH O POS ANTIBODY SCREEN NEG HEPATITIS B SURFACE ANTIGEN - 12/13/17 12:44 HEPATITIS B SURFACE ANTIGEN INTERPRETATION Non-reactive Non- reactive RUBELLA ANTIBODY, IGG - 12/13/17 12:44 RUBELLA SCREEN 23.80 IU/mL GEST. GLUCOSE SCREEN - 12/13/17 12:44 GEST. GLUCOSE SCREEN 82 mg/dL <=139 HIV-1/2 ANTIBODY, HIV-1 P24 ANTIGEN - 12/13/17 12:44 4473247 Non-Reactive Non-Reactive RPR - 12/13/17 12:44 RPR Non-Reactive Non-Reactive URINE CULTURE - 12/13/17 12:44 4893702 [place] Count>34298 <094079 cfu/mL of at least 2 organisms suggestive of contamination PREPARENT STANDARD - 12/13/17 12:44 7200306 See scanned Progenity report PROTEIN / CREATININE RATIO, URINE - 02/16/18 14:25 CREATININE URINE 163.4 mg/dL PROTEIN URINE 8.0 mg/dL 5671072 0.05 <0.16 CBC WITHOUT DIFFERENTIAL - 03/28/18 12:12 HEMATOCRIT 36.3 % 34.9-44.5 HEMOGLOBIN 11.9 g/dL 12.0-15.5 MEAN CORPUSCULAR HEMOGLOBIN 30.3 pg 26.0-34.0 MEAN CORPUSCULAR HEMOGLOBIN CONC 32.8 g/dL 31.0-37.0 MEAN CORPUSCULAR VOLUME 92.4 fL 81.6-98.3 PLATELET COUNT 309 10E9/L 150-450 RED BLOOD CELL COUNT 3.93 10E12/L 3.90-5.03 RED CELL DISTRIBUTION WIDTH 12.9 % 11.9-15.5 9589755 11.2 10E9/L 3.5-10.5 GEST. GLUCOSE SCREEN - 03/28/18 12:12 GEST. GLUCOSE SCREEN 107 mg/dL <=139 PROTEIN, URINE, 24 HOUR - 04/06/18 06:15 24 HR URINE VOLUME 1600 mL 800-1,800 PROTEIN 24 HOUR URINE mg/24h 0-149 PROTEIN URINE < mg/dL GROUP B BETA STREP SCREEN - 05/31/18 08:15 6547882 Negative PERFORM URINE SCREEN, AUTOMATED - 06/07/18 16:28 [place]PER[place] Clear BILIRUBIN 1+ Negative COLOR Dark Yellow GLUCOSE Negative Negative HEMOGLOBIN Negative Negative KETONES Trace Negative LEUKOESTERASE Negative Negative NITRATE Negative Negative PH-URINE 6.0 5.0-8.0 PROTEIN 1+ Negative SPECIFIC GRAVITY 1.020 1.003-1.030 2239 0.2 EU <=0.2 PROTEIN / CREATININE RATIO, URINE - 06/07/18 17:22 CREATININE URINE 240.8 mg/dL PROTEIN URINE 14.1 mg/dL 1167874 0.06 <0.16 CBC WITH AUTO DIFFERENTIAL - [...] RED CELL DISTRIBUTION WIDTH 12.8 % 11.9-15.5 6705684 11.8 10E9/L 3.5-10.5 5999915 2.19 10E9/L 0.90-2.90 0710429 0.65 10E9/L 0.30-0.90 1328743 0.07 10E9/L 0.05-0.50 4370825 8.85 10E9/L 1.70-7.00 6987832 0.03 10E9/L 0.00-0.30 5845971 0 % URIC ACID - 06/07/18 18:19 [...] RED CELL DISTRIBUTION WIDTH 13.2 % 11.9-15.5 8260495 13.5 10E9/L 3.5-10.5 3823332 2.40 10E9/L 0.90-2.90 5810804 0.63 10E9/L 0.30-0.90 2425518 0.20 10E9/L 0.05-0.50 4284216 10.18 10E9/L 1.70-7.00 9403833 0.04 10E9/L 0.00-0.30 8870373 0 % COMPREHENSIVE METABOLIC PANEL - 08/17/18 [...] EU/dL 0.2 WBC UA 4-10 /hpf 0-3 1578127 Negative Negative 0370944 5 /lpf Complete urinalysis with reflex to [...] urinalysis with reflex to culture YES NRG Bacterial urine culture - 11/04/18 18:12 Bacterial urine culture 3 OR MORE NRG COLONY COUNT >100,000/ML NRG FTX;REPORTABLE GRAM POSITIVES, SUGGESTING PROBABLE NRG FREE TEXT ENTRY 2 COLLECTION CONTAMINATION WITH NRG FREE TEXT ENTRY 3 SKIN ELLEN. NO SUSCEPTIBILITY PERFORMED NRG Complete blood count (CBC) with automated [...] - 11/04/18 18:16 Lipase 15 U/L 8-78 Complete blood count (CBC) with automated white blood cell (WBC) differential - 11/05/18 04:43 Blood leukocytes automated count (number/volume) 4.8 10*3/uL 4.3-11.0 Blood erythrocytes automated count (number/volume) 4.65 10*6/uL 4.35-5.85 Venous blood hemoglobin measurement (mass/volume) 12.4 g/dL 11.5-16.0 Blood hematocrit (volume fraction) 38 % 35-52 Automated erythrocyte mean corpuscular volume 82 [foz_us] 80-99 Automated erythrocyte mean corpuscular hemoglobin (mass per erythrocyte) 27 pg 25-34 Automated erythrocyte mean corpuscular hemoglobin concentration measurement (mass/volume) 33 g/dL 32-36 Automated erythrocyte distribution width ratio 13.9 % 10.0- 14.5 Automated blood platelet count (count/volume) 265 10*3/uL 130-400 Automated blood platelet mean volume measurement 11.1 [foz_us] 7.4-10.4 Automated blood neutrophils/100 leukocytes 46 % 42-75 Automated blood lymphocytes/100 leukocytes 43 % 12-44 Blood monocytes/100 leukocytes 8 % 0-12 Automated blood eosinophils/100 leukocytes 3 % 0-10 Automated blood basophils/100 leukocytes 0 % 0-10 Blood neutrophils automated count (number/volume) 2.2 10*3 1.8-7.8 Blood lymphocytes automated count (number/volume) 2.1 10*3 1.0-4.0 Blood monocytes automated count (number/volume) 0.4 10*3 0.0- 1.0 Automated eosinophil count 0.1 10*3/uL 0.0-0.3 Automated blood basophil count (count/volume) 0.0 10*3/uL 0.0-0.1 Comprehensive metabolic panel - 11/05/18 04:43 Serum or plasma sodium measurement (moles/volume) 138 mmol/L 135-145 Serum or plasma potassium measurement (moles/volume) 4.0 mmol/L 3.6-5.0 Serum or plasma chloride measurement (moles/volume) 107 mmol/L 98-107 Carbon dioxide 20 mmol/L 21-32 Serum or plasma anion gap determination (moles/volume) 11 mmol/L 5-14 Serum or plasma urea nitrogen measurement (mass/volume) 11 mg/dL 7-18 Serum or plasma creatinine measurement (mass/volume) 0.93 mg/dL 0.60-1.30 Serum or plasma urea nitrogen/creatinine mass ratio 12 NRG Serum or plasma creatinine measurement with calculation of estimated glomerular filtration rate > NRG Serum or plasma glucose measurement (mass/volume) 106 mg/dL 70-105 Serum or plasma calcium measurement (mass/volume) 9.0 mg/dL 8.5-10.1 Serum or plasma total bilirubin measurement (mass/volume) 2.5 mg/dL 0.1-1.0 Serum or plasma alkaline phosphatase measurement (enzymatic activity/volume) 287 U/L 40-136 Serum or plasma aspartate aminotransferase measurement (enzymatic activity/volume) 471 U/L 5-34 Serum or plasma alanine aminotransferase measurement (enzymatic activity/volume) 606 U/L 0-55 Serum or plasma protein measurement (mass/volume) 6.5 g/dL 6.4-8.2 Serum or plasma albumin measurement (mass/volume) 3.7 g/dL 3.2-4.5 CALCIUM CORRECTED 9.2 mg/dL 8.5-10.1 Serum or plasma amylase measurement (enzymatic activity/volume) - 11/05/18 04:43 Serum or plasma amylase measurement (enzymatic activity/volume) 42 U/L 25-125 Lipase - 11/05/18 04:43 Lipase 71 U/L 8-78 Methicillin resistant Staphylococcus aureus (MRSA) screening culture - 11/05/18 10:35 Methicillin resistant Staphylococcus aureus (MRSA) screening culture NEG NRG Radiology Report from [id number] on 04/12/2018 15:39:20 Results from a Maternal Medicine study have been reported below.* [employer] users: Click "Open ViewPoint Report" link under "Linked Documents" section.* [facility] PACS users: View this result from [employer].* FAX Recipients: Blank page may follow report. Contact [facility] at [phone] if illegible or missing page. Radiology Report from [id number] on 05/10/2018 16:38:56 Results from a Maternal Medicine study have been reported below.* [employer] users: Click "Open ViewPoint Report" link under "Linked Documents" section.* [facility] PACS users: View this result from [employer].* FAX Recipients: Blank page may follow report. Contact [facility] at [phone] if illegible or missing page. Radiology Report from [id number] on 06/07/2018 15:53:26 Results from a Maternal Medicine study have been reported below.* [employer] users: Click "Open ViewPoint Report" link under "Linked Documents" section.* [facility] PACS users: View this result from [employer].* FAX Recipients: Blank page may follow report. Contact [facility] at [phone] if illegible or missing page. Radiology Report [...] Status Pt. Type Provider Facility Loc./Unit Complaint [id number] 11/01/2018 11:20:00 11/01/2018 23:59:59 CLS Outpatient CHCMARLO WEAVER [id number] 11/04/2018 19:30:00 11/05/2018 21:22:00 DIS Inpatient LUTHER DICK DO [facility] 4TH CHOLELITHIASIS [id number] 04/05/2013 07:15:00 04/05/2013 10:23:00 DIS Emergency SALLY RAMOS MD [facility] ER ALLERGIC REACTION [id number] 12/31/2012 11:16:00 12/31/2012 23:59:59 CLS Outpatient [id number] 06/15/2012 14:54:00 Document Registration [id number] 05/06/2012 09:43:00 Document Registration [id number] 07/21/2018 11:17:28 07/21/2018 23:59:59 CLS Outpatient [facility]ER[facility]Y N[facility]SING [facility] [id number] 06/17/2018 11:42:37 06/17/2018 23:59:59 CLS Outpatient [facility] DIRECTOR OF EMERGENCY NURSING [place] [id number] 06/07/2018 09:09:34 06/07/2018 23:59:59 CLS Outpatient [facility] S Asher DIRECTOR OF EMERGENCY NURSING [place] [id number] 05/31/2018 08:17:10 05/31/2018 23:59:59 CLS Outpatient Asher DIRECTOR OF EMERGENCY NURSING [place] [id number] 05/31/2018 08:01:12 05/31/2018 23:59:59 CLS Outpatient [facility] S Asher DIRECTOR OF EMERGENCY NURSING [place] [id number] 05/25/2018 08:09:07 05/25/2018 23:59:59 CLS Outpatient [facility]ENC[facility]URSING [facility] [id number] 05/10/2018 10:47:04 05/10/2018 23:59:59 CLS Outpatient [facility] DIRECTOR OF EMERGENCY NURSING [place] [id number] 05/10/2018 08:59:23 05/10/2018 23:59:59 CLS Outpatient JIN JAY [facility] DIRECT[facility] EMERGENCY NURSING [facility] [id number] 04/26/2018 11:10:29 04/26/2018 23:59:59 CLS Outpatient JIN JAY [facility] DIRECT[facility] OF EMERGENCY NURSING [facility] [id number] 04/13/2018 11:28:40 04/13/2018 23:59:59 CLS Outpatient JIN JAY S [facility] DIRECTOR OF EMERGENCY NURSING [facility] [id number] 04/06/2018 11:06:36 04/06/2018 23:59:59 CLS Outpatient [facility] DIRECT[facility] OF EMERGENCY NURSING [facility] [id number] 03/28/2018 10:58:38 03/28/2018 23:59:59 CLS Outpatient [facility] DIRECT[facility] OF EMERGENCY NURSING [facility] [id number] 03/28/2018 10:57:11 03/28/2018 23:59:59 CLS Outpatient JIN JAY [facility] DIRECT[facility] OF EMERGENCY NURSING [facility] [id number] 03/08/2018 10:03:31 03/08/2018 23:59:59 CLS Outpatient TORY NIELSON [facility] DIRECTOR OF EMERGENCY NURSING [facility] [id number] 02/07/2018 14:47:33 02/07/2018 23:59:59 CLS Outpatient ZACKARY FERNANDEZ [facility] EMERGENCY NURSING [facility] [id number] 02/07/2018 14:46:47 02/07/2018 23:59:59 CLS Outpatient [facility] OF EMERGENCY NURSING [facility] [id number] 01/10/2018 09:21:27 01/10/2018 23:59:59 CLS Outpatient [facility] DIRECTOR OF EMERGENCY NURSING [facility] [id number] 01/10/2018 08:51:04 01/10/2018 23:59:59 CLS Outpatient CELIA BLACKMAN [facility] DIRECTOR OF EMERGENCY NURSING [facility] [id number] 12/13/2017 11:22:01 12/13/2017 23:59:59 CLS Outpatient [facility] DIRECTOR OF EMERGENCY NURSING [facility] [id number] 12/13/2017 10:29:48 12/13/2017 23:59:59 CLS Outpatient JAYSON DENISE [facility] DIRECTOR OF EMERGENCY NURSING [facility] [id number] 11/19/2017 15:18:29 11/19/2017 23:59:59 CLS Outpatient [facility] DIRECTOR OF EMERGENCY NURSING [facility] [id number] 11/10/2017 09:58:23 11/10/2017 23:59:59 CLS Outpatient [facility] DIRECTOR OF EMERGENCY NURSING [facility] [id number] 11/05/2017 15:16:37 11/05/2017 23:59:59 CLS Outpatient [facility] DIRECTOR OF EMERGENCY NURSING [facility] [id number] 11/01/2017 14:37:38 11/01/2017 23:59:59 CLS Outpatient [facility] DIRECTOR OF EMERGENCY NURSING [facility] [id number] 10/11/2018 10:13:45 10/11/2018 23:59:59 CLS Outpatient Linnette Lubin [id number] 08/16/2018 23:55:58 08/17/2018 02:36:00 DIS Emergency WALI SIFUENTES [facility] [id number] 06/20/2018 11:10:51 06/20/2018 23:59:00 DIS Outpatient [facility] [id number] 06/13/2018 12:17:47 06/13/2018 23:59:00 DIS Outpatient JIN JAY S [facility] [id number] 06/12/2018 12:43:43 06/12/2018 23:59:00 DIS Outpatient SAKINA JAYLAS S [facility] [id number] 06/07/2018 16:09:00 06/11/2018 15:21:00 DIS Inpatient CARISSA DOTSON [address] [id number] 06/07/2018 15:08:04 06/07/2018 23:59:59 CLS Outpatient [facility] [id number] 06/07/2018 15:00:29 06/07/2018 23:59:59 CLS Outpatient [facility] [id number] 06/07/2018 14:59:19 06/07/2018 23:59:59 CLS Outpatient CHAUNCEY JUAREZ [facility] [id number] 05/29/2018 06:05:23 05/29/2018 23:59:59 CLS Outpatient JIN JAY [facility] [id number] 05/29/2018 03:34:00 05/29/2018 05:55:00 DIS Outpatient JIN JAY [facility] [id number] 05/10/2018 15:13:28 05/10/2018 23:59:59 CLS Outpatient [facility] [id number] 05/10/2018 14:56:02 05/10/2018 23:59:59 CLS Outpatient [facility] [id number] 05/10/2018 14:55:42 05/10/2018 23:59:59 CLS Outpatient REILLY ROMERO [facility] [id number] 04/12/2018 14:10:23 04/12/2018 23:59:59 CLS Outpatient [facility] [id number] 04/12/2018 13:48:14 04/12/2018 23:59:59 CLS Outpatient [facility] [id number] 04/12/2018 13:47:32 04/12/2018 23:59:59 CLS Outpatient REILLY ROMERO [facility] [id number] 03/16/2018 13:04:32 03/16/2018 23:59:59 CLS Outpatient [facility] [id number] 03/16/2018 12:48:22 03/16/2018 23:59:59 CLS Outpatient [facility] [id number] 03/16/2018 12:47:58 03/16/2018 23:59:59 CLS Outpatient REILLY ROMERO [facility] [id number] 02/16/2018 13:02:33 02/16/2018 23:59:59 CLS Outpatient [facility] [id number] 02/16/2018 12:24:03 02/16/2018 23:59:59 CLS Outpatient [facility] [id number] 02/16/2018 12:23:39 02/16/2018 23:59:59 CLS Outpatient REILLY ROMERO [facility] [id number] 11/09/2017 00:58:07 11/09/2017 02:45:00 DIS Emergency CATHLEEN PRESSLEY [facility] EMD [id number] 05/04/2017 20:59:14 05/04/2017 21:17:00 DIS Emergency CATHLEEN PRESSLEY [facility] [id number] 10/27/2015 16:32:47 10/27/2015 23:59:59 [facility] Outpatient EMI VICK J [facility] EXPUR [id number] 08/17/2018 01:11:06 Document Registration [id number] 06/07/2018 20:14:18 Document Registration [id number] 06/02/2018 10:40:15 Document Registration [id number] 04/06/2018 13:28:24 Document Registration [id number] 03/28/2018 14:16:35 Document Registration [id number] 12/13/2017 14:32:18 Document Registration [id number] 11/10/2017 13:29:03 Document Registration [id number] 11/01/2017 18:53:52 Document Registration
== END 2018-11-05 21:22 | disposition home or self-care (01) ==
LOC: EDUNIT# 17:38 → ER 17:39 → UNDOADMOB 19:30 → 4TH 19:30 → EDBEDREQ 19:41 → SDC 20:10 → 4TH 20:10 → UNDODISOB 11-05 21:22 → SDC 11-05 21:22
PROVIDERS: ATTEND Surgery
DX: K80.12 Calculus of gallbladder with acute and chronic cholecystitis without obstruction (principal); E66.01 Morbid (severe) obesity due to excess calories; Z87.891 Personal history of nicotine dependence; Z68.44 Body mass index [BMI] 60.0-69.9, adult
CPT/HCPCS: 36415; 74022; 74177; 80053; 81000; 82150; 83690; 84703; 85025; 87081; 87088; 96361; 96374; 96375; G0378

== ENCOUNTER 2018-11-12 20:10 | Emergency (ER) | payer BC ==
[~2018-11-12] VITALS: Ht 167.6 cm; Wt 183.7 kg
[~2018-11-12 20:10] MED LIST changes: +HYDR-3820 PO
--- OUTSIDE RECORDS SUMMARY | 2018-11-12 20:35 | XMS REPORT | Continuity of Care Document ---
Author Organization Unknown Address Unknown Allergies Active Description Code Type Severity Reaction Onset Reported/Identified Relationship to Patient Clinical Status Yes NO NAME AVAILABLE 04641 DRUG N/A N/A Yes NO NAME AVAILABLE 68405 DRUG N/A N/A Yes No Known Drug Allergies [id number] Drug Allergy Unknown N/A 05/06/2012 Medications Medication [...] 06/07/2018 06/08/2018 Oral 600 EVERY 8 HOURS HBIPVSA-[id number]-HQWQH PERTUSSIS 5-2-15.5 LF-MCG/0.5 IM SUSP 06/07/2018 Intramuscular [...] gestation of 05/29/2018 JIN JAY S V 480894 Abdominal Pain 05/29/2018 PIERRE JIN S F O26.893 Other specified related conditions, third trimester 05/29/2018 PIERRE JIN S F R10.9 Unspecified abdominal pain 05/29/2018 PIERRE JIN S F Z3A.36 36 weeks gestation of 05/29/2018 PIERRE JIN S F 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 06/11/2018 CARISSA DOTSON V 186256 Hypertension 06/11/2018 CARISSA DOTSON O32.6XX0 Maternal care [...] pre-eclampsia, unspecified trimester 08/17/2018 WALI SIFUENTES V 741796 Chest Pain 08/17/2018 WALI SIFUENTES V R07.9 Chest pain, unspecified 08/17/2018 WALI SIFUENTES V R09.1 Pleurisy 08/17/2018 WALI SIFUENTES E28.2 Polycystic ovarian syndrome 08/17/2018 WALI SIFUENTES E66.01 Morbid (severe) obesity due to excess calories (HCC) 08/17/2018 MARIA, WALI Chopra F32.9 Major depressive disorder, single episode, unspecified 08/17/2018 WALI SIFUENTES I10 Essential (primary) hypertension 08/17/2018 WALI SIFUENTES R06.02 Shortness of breath 08/17/2018 WALI SIFUENTES R07.89 Other chest pain 08/17/2018 WALI SIFUENTES R09.1 Pleurisy 08/17/2018 WALI SIFUENTES Z68.44 Body mass index (bmi) 60.0-69.9, adult (HCC) 11/05/2018 LUTHER DICK DO B Ot E66.01 MORBID (SEVERE) OBESITY DUE TO EXCESS CA 11/05/2018 ELLE DICK DOIC B Ot K80.12 CALCULUS OF GB W ACUTE AND CHRONIC KENDRICK 11/05/2018 LELE DICK DOIC B Ot Z68.44 BODY MASS INDEX (BMI) 60.0-69.9, ADULT 11/05/2018 ELLE DICK DOIC B Ot Z87.891 PERSONAL HISTORY OF NICOTINE DEPENDENCE 11/09/2018 ELLE DICK DOIC B Ot E66.01 MORBID (SEVERE) OBESITY DUE TO EXCESS CA 11/09/2018 ELLE DICK DOIC B Ot K80.12 CALCULUS OF GB W ACUTE AND CHRONIC KENDRICK 11/09/2018 ELLE DICK DOIC B Ot Z68.44 BODY MASS INDEX (BMI) 60.0-69.9, ADULT 11/09/2018 ELLE DICK DOIC B Ot Z87.891 PERSONAL HISTORY OF NICOTINE DEPENDENCE Procedures Code Description Performed By Performed On [id number] HCG, QUANTITATIVE, 11/01/2017 DCA578 AMB REFERRAL TO MATERNAL MEDICINE 02/07/2018 76801 NC NON-STRESS TEST 05/29/2018 [id number] Extraction of Products of Conception, Low, Open Approach 06/07/2018 Results Test Result Range HCG, QUANTITATIVE, - 06/11/18 14:42 B-HCG QUANTITATIVE 41990 mIU/mL <=4 CBC WITH AUTO DIFFERENTIAL - [...] RED CELL DISTRIBUTION WIDTH 12.3 % 11.9-15.5 0007228 11.2 10E9/L 3.5-10.5 8441789 3.40 10E9/L 0.90-2.90 8423391 0.78 10E9/L 0.30-0.90 6016962 0.14 10E9/L 0.05-0.50 4711718 6.87 10E9/L 1.70-7.00 8306859 0.04 10E9/L 0.00-0.30 9578969 0 % HCG, QUANTITATIVE, - 11/09/17 01:09 B-HCG QUANTITATIVE 57933 mIU/mL <=4 TYPE AND SCREEN - 11/09/17 01:09 ABORH O POS ANTIBODY SCREEN NEG TRICHOMONAS RAPID TEST - 11/09/17 01:35 0321815 Negative Negative, Invalid CHLAMYDIA TRACHOMATIS AMPLIFIED PROBE - 11/09/17 01:35 2416511 Negative Negative NEISSERIA GONORRHOEAE AMPLIFIED PROBE - 11/09/17 01:35 9673023 Negative Negative GRAM STAIN, ONLY - 11/09/17 01:36 7148191 No evidence of Bacterial Vaginosis HCG, QUANTITATIVE, - 11/10/17 10:03 B-HCG QUANTITATIVE 59672 mIU/mL <=4 CHLAMYDIA TRACHOMATIS AMPLIFIED PROBE - 12/13/17 10:40 8602657 Negative Negative NEISSERIA GONORRHOEAE AMPLIFIED PROBE - 12/13/17 10:40 1417171 Negative Negative PAP, LIQUID-BASED - 12/13/17 10:40 [id number] Result to be found under pathology section [...] RED CELL DISTRIBUTION WIDTH 12.5 % 11.9-15.5 9458150 9.1 10E9/L 3.5-10.5 2581415 2.34 10E9/L 0.90-2.90 7192144 0.69 10E9/L 0.30-0.90 0163587 0.13 10E9/L 0.05-0.50 4744589 5.91 10E9/L 1.70-7.00 4930372 0.04 10E9/L 0.00-0.30 2489595 0 % TYPE AND SCREEN - 12/13/17 12:44 ABORH O POS ANTIBODY SCREEN NEG HEPATITIS B SURFACE ANTIGEN - 12/13/17 12:44 HEPATITIS B SURFACE ANTIGEN INTERPRETATION Non-reactive Non- reactive RUBELLA ANTIBODY, IGG - 12/13/17 12:44 RUBELLA SCREEN 23.80 IU/mL GEST. GLUCOSE SCREEN - 12/13/17 12:44 GEST. GLUCOSE SCREEN 82 mg/dL <=139 HIV-1/2 ANTIBODY, HIV-1 P24 ANTIGEN - 12/13/17 12:44 1521130 Non-Reactive Non-Reactive RPR - 12/13/17 12:44 RPR Non-Reactive Non-Reactive URINE CULTURE - 12/13/17 12:44 6711125 [place] Count>34277 <480635 cfu/mL of at least 2 organisms suggestive of contamination PREPARENT STANDARD - 12/13/17 12:44 4177959 See scanned Progenity report PROTEIN / CREATININE RATIO, URINE - 02/16/18 14:25 CREATININE URINE 163.4 mg/dL PROTEIN URINE 8.0 mg/dL 8316632 0.05 <0.16 CBC WITHOUT DIFFERENTIAL - 03/28/18 12:12 HEMATOCRIT 36.3 % 34.9-44.5 HEMOGLOBIN 11.9 g/dL 12.0-15.5 MEAN CORPUSCULAR HEMOGLOBIN 30.3 pg 26.0-34.0 MEAN CORPUSCULAR HEMOGLOBIN CONC 32.8 g/dL 31.0-37.0 MEAN CORPUSCULAR VOLUME 92.4 fL 81.6-98.3 PLATELET COUNT 309 10E9/L 150-450 RED BLOOD CELL COUNT 3.93 10E12/L 3.90-5.03 RED CELL DISTRIBUTION WIDTH 12.9 % 11.9-15.5 2158402 11.2 10E9/L 3.5-10.5 GEST. GLUCOSE SCREEN - 03/28/18 12:12 GEST. GLUCOSE SCREEN 107 mg/dL <=139 PROTEIN, URINE, 24 HOUR - 04/06/18 06:15 24 HR URINE VOLUME 1600 mL 800-1,800 PROTEIN 24 HOUR URINE mg/24h 0-149 PROTEIN URINE < mg/dL GROUP B BETA STREP SCREEN - 05/31/18 08:15 5423855 Negative PERFORM URINE SCREEN, AUTOMATED - 06/07/18 16:28 APPERANCE Clear BILIRUBIN 1+ Negative COLOR Dark Yellow GLUCOSE Negative Negative HEMOGLOBIN Negative Negative KETONES Trace Negative LEUKOESTERASE Negative Negative NITRATE Negative Negative PH-URINE 6.0 5.0-8.0 PROTEIN 1+ Negative SPECIFIC GRAVITY 1.020 1.003-1.030 2239 0.2 EU <=0.2 PROTEIN / CREATININE RATIO, URINE - 06/07/18 17:22 CREATININE URINE 240.8 mg/dL PROTEIN URINE 14.1 mg/dL 7878170 0.06 <0.16 CBC WITH AUTO DIFFERENTIAL - [...] RED CELL DISTRIBUTION WIDTH 12.8 % 11.9-15.5 8712165 11.8 10E9/L 3.5-10.5 2958306 2.19 10E9/L 0.90-2.90 9207829 0.65 10E9/L 0.30-0.90 5969909 0.07 10E9/L 0.05-0.50 9093969 8.85 10E9/L 1.70-7.00 1887996 0.03 10E9/L 0.00-0.30 3520572 0 % URIC ACID - 06/07/18 18:19 [...] RED CELL DISTRIBUTION WIDTH 13.2 % 11.9-15.5 5916214 13.5 10E9/L 3.5-10.5 5452248 2.40 10E9/L 0.90-2.90 9228896 0.63 10E9/L 0.30-0.90 3988243 0.20 10E9/L 0.05-0.50 7136020 10.18 10E9/L 1.70-7.00 9472718 0.04 10E9/L 0.00-0.30 3594107 0 % COMPREHENSIVE METABOLIC PANEL - 08/17/18 [...] EU/dL 0.2 WBC UA 4-10 /hpf 0-3 8877311 Negative Negative 7997280 5 /lpf Complete urinalysis with reflex to [...] Maternal Medicine study have been reported below.* [employer] users: Click "Open ViewPoint Report" link under "Linked Documents" section.* [facility] PACS users: View this result from [employer].* FAX Recipients: Blank page may follow report. Contact [facility] at [phone] if illegible or missing page. Radiology Report from [id number] on 05/10/2018 16:38:56 Results from a Maternal Medicine study have been reported below.* [employer] users: Click "Open ViewPoint Report" link under "Linked Documents" section.* [facility] PACS users: View this result from [employer].* FAX Recipients: Blank page may follow report. Contact [facility] at [phone] if illegible or missing page. Radiology Report from [id number] on 06/07/2018 15:53:26 Results from a Maternal Medicine study have been reported below.* [employer] users: Click "Open ViewPoint Report" link under "Linked Documents" section.* [facility] PACS users: View this result from [employer].* FAX Recipients: Blank page may follow report. Contact [facility] at [phone] if illegible or missing page. Radiology Report [...] Status Pt. Type Provider Facility Loc./Unit Complaint [id number] 11/01/2018 11:20:00 11/01/2018 23:59:59 CLS Outpatient [facility] [id number] 11/04/2018 20:10:00 11/05/2018 21:22:00 DIS Outpatient [facility] [id number] 04/05/2013 07:15:00 04/05/2013 10:23:00 DIS Emergency SALLY RAMOS MD [facility] ER ALLERGIC REACTION [id number] 12/31/2012 11:16:00 12/31/2012 23:59:59 CLS Outpatient [id number] 06/15/2012 14:54:00 Document Registration [id number] 05/06/2012 09:43:00 Document Registration [id number] 07/21/2018 11:17:28 07/21/2018 23:59:59 CLS Outpatient JIN JAY [place] [facility] [id number] 06/17/2018 11:42:37 06/17/2018 23:59:59 CLS Outpatient [place] ELEMENTARY EDUC[facility] [id number] 06/07/2018 09:09:34 06/07/2018 23:59:59 CLS Outpatient PIERRE JIN S [place] ELEMENTARY EDUCATOR [facility] [id number] 05/31/2018 08:17:10 05/31/2018 23:59:59 CLS Outpatient [place] ELEMENTARY EDUCATOR [facility] [id number] 05/31/2018 08:01:12 05/31/2018 23:59:59 CLS Outpatient PIERRE JIN S [place] ELEMENTARY EDUCATOR [facility] [id number] 05/25/2018 08:09:07 05/25/2018 23:59:59 CLS Outpatient PIERRE, JIN S [place] ELEMENTARY EDUCATOR [facility] [id number] 05/10/2018 10:47:04 05/10/2018 23:59:59 CLS Outpatient [place] ELEMENTARY EDUCATOR [facility] [id number] 05/10/2018 08:59:23 05/10/2018 23:59:59 CLS Outpatient PIERRE JIN S [place] ELEMENTARY EDUCATOR [facility] [id number] 04/26/2018 11:10:29 04/26/2018 23:59:59 CLS Outpatient PIERRE JIN S [place] ELEMENTARY EDUCATOR [facility] [id number] 04/13/2018 11:28:40 04/13/2018 23:59:59 CLS Outpatient PIERRE JIN S [place] ELEMENTARY EDUCATOR [facility] [id number] 04/06/2018 11:06:36 04/06/2018 23:59:59 CLS Outpatient [place] ELEMENTARY EDUCATOR [facility] [id number] 03/28/2018 10:58:38 03/28/2018 23:59:59 CLS Outpatient [place] ELEMENTARY EDUCATOR [facility] [id number] 03/28/2018 10:57:11 03/28/2018 23:59:59 CLS Outpatient PIERRE JIN S [place] ELEMENTARY EDUCATOR [facility] [id number] 03/08/2018 10:03:31 03/08/2018 23:59:59 CLS Outpatient NISREEN, TORY Royce [place] ELEMENTARY EDUCATOR [facility] [id number] 02/07/2018 14:47:33 02/07/2018 23:59:59 CLS Outpatient ZACKARY FERNANDEZ [place] ELEMENTARY EDUCATOR [facility] [id number] 02/07/2018 14:46:47 02/07/2018 23:59:59 CLS Outpatient [place] ELEMENTARY EDUCATOR [facility] [id number] 01/10/2018 09:21:27 01/10/2018 23:59:59 CLS Outpatient [place] ELEMENTARY EDUCATOR [facility] [id number] 01/10/2018 08:51:04 01/10/2018 23:59:59 CLS Outpatient CELIA BLACKMAN [place] ELEMENTARY EDUCATOR [facility] [id number] 12/13/2017 11:22:01 12/13/2017 23:59:59 CLS Outpatient [place] ELEMENTARY EDUCATOR [facility] [id number] 12/13/2017 10:29:48 12/13/2017 23:59:59 CLS Outpatient GIANLUCANEOJAYSON [place] ELEMENTARY EDUCATOR [facility] [id number] 11/19/2017 15:18:29 11/19/2017 23:59:59 CLS Outpatient [place] ELEMENTARY EDUCATOR [facility] [id number] 11/10/2017 09:58:23 11/10/2017 23:59:59 CLS Outpatient [place] ELEMENTARY EDUCATOR [facility] [id number] 11/05/2017 15:16:37 11/05/2017 23:59:59 CLS Outpatient [place] ELEMENTARY EDUCATOR [facility] [id number] 11/01/2017 14:37:38 11/01/2017 23:59:59 CLS Outpatient [place] ELEMENTARY EDUCATOR [facility] [id number] 10/11/2018 10:13:45 10/11/2018 23:59:59 CLS Outpatient Linnette Lubin [id number] 08/16/2018 23:55:58 08/17/2018 02:36:00 DIS Emergency WALI SIFUENTES [facility] [id number] 06/20/2018 11:10:51 06/20/2018 23:59:00 DIS Outpatient [facility] [id number] 06/13/2018 12:17:47 06/13/2018 23:59:00 DIS Outpatient JIN JAY [facility] [id number] 06/12/2018 12:43:43 06/12/2018 23:59:00 DIS Outpatient JIN JAY [facility] [id number] 06/07/2018 16:09:00 06/11/2018 15:21:00 DIS Inpatient CARISSA DOTSON [address] [id number] 06/07/2018 15:08:04 06/07/2018 23:59:59 CLS Outpatient [facility] [id number] 06/07/2018 15:00:29 06/07/2018 23:59:59 CLS Outpatient [facility] [id number] 06/07/2018 14:59:19 06/07/2018 23:59:59 CLS Outpatient CHAUNCEY JUAREZ [facility] [id number] 05/29/2018 06:05:23 05/29/2018 23:59:59 CLS Outpatient JIN JAY [address] [id number] 05/29/2018 03:34:00 05/29/2018 05:55:00 DIS Outpatient JIN JAY [address] [id number] 05/10/2018 15:13:28 05/10/2018 23:59:59 CLS Outpatient [facility] [id number] 05/10/2018 14:56:02 05/10/2018 23:59:59 CLS Outpatient [facility] [id number] 05/10/2018 14:55:42 05/10/2018 23:59:59 CLS Outpatient REILLY ROMERO [facility] [id number] 04/12/2018 14:10:23 04/12/2018 23:59:59 CLS Outpatient [facility] [id number] 04/12/2018 13:48:14 04/12/2018 23:59:59 CLS Outpatient [facility] [id number] 04/12/2018 13:47:32 04/12/2018 23:59:59 CLS Outpatient REILLY ROMERO [facility] [id number] 03/16/2018 13:04:32 03/16/2018 23:59:59 CLS Outpatient [place] [facility] [id number] 03/16/2018 12:48:22 03/16/2018 23:59:59 CLS Outpatient [place] [facility] [id number] 03/16/2018 12:47:58 03/16/2018 23:59:59 [facility] [id number] 02/16/2018 13:02:33 02/16/2018 23:59:59 CLS Outpatient [place] [facility] [id number] 02/16/2018 12:24:03 02/16/2018 23:59:59 CLS Outpatient [place] [facility] [id number] 02/16/2018 12:23:39 02/16/2018 23:59:59 CLS [facility] [id number] 11/09/2017 00:58:07 11/09/2017 02:45:00 DIS Emergency PRESSLEY, CATHLEEN [facility] [id number] 05/04/2017 20:59:14 05/04/2017 21:17:00 DIS Emergency PRESSLEY [facility]ATH[facility]EN [facility] [id number] 10/27/2015 16:32:47 10/27/2015 23:59:59 CLS [facility] [id number] 08/17/2018 01:11:06 Document Registration [id number] 06/07/2018 20:14:18 Document Registration [id number] 06/02/2018 10:40:15 Document Registration [id number] 04/06/2018 13:28:24 Document Registration [id number] 03/28/2018 14:16:35 Document Registration [id number] 12/13/2017 14:32:18 Document Registration [id number] 11/10/2017 13:29:03 Document Registration [id number] 11/01/2017 18:53:52 Document Registration
[2018-11-12] MEDS ORDERED: NS IV 1000 ML 1,000 ML IV ONE (20:58)
--- NOTE | 2018-11-12 20:59 | NUR ---
REPORT GIVEN TO REBA BANDA.
[2018-11-12] MEDS ORDERED: ONDANSETRON 4 MG/2 ML (SDV) Z0FRAN IVP ONE (21:00)
--- NOTE | 2018-11-12 21:00 | NUR ---
report from stephane vidales.
[2018-11-12 21:05] LABS: BILIRUBIN,URINE NEGATIVE (NEGATIVE); CLARITY,URINE CLEAR; COLOR,URINE YELLOW; GLUCOSE, URINE (UA) NEGATIVE (NEGATIVE); KETONES,URINE NEGATIVE (NEGATIVE); LEUKOCYTE ESTERASE ,URINE 1+ (NEGATIVE); NITRITE,URINE NEGATIVE (NEGATIVE); PH,URINE 8 (5-9); PROTEIN,URINE NEGATIVE (NEGATIVE); UROBILINOGEN,URINE NORMAL (NORMAL)
[2018-11-12 21:06] LABS: BASOPHILS % (AUTO) 0 % (0-10); EOSINOPHILS # (AUTO) 0.1 10^3/uL (0.0-0.3); EOSINOPHILS % (AUTO) 0 % (0-10); HEMATOCRIT 41 % (35-52); HEMOGLOBIN 13.5 G/DL (11.5-16.0); LYMPHOCYTES # (AUTO) 0.8 X 10^3 (1.0-4.0); LYMPHOCYTES % (AUTO) 6 % (12-44); MEAN CORPUSCULAR HEMOGLOBIN 27 PG (25-34); MEAN CORPUSCULAR HGB CONC 33 G/DL (32-36); MEAN CORPUSCULAR VOLUME 82 FL (80-99); MONOCYTES # (AUTO) 0.8 X 10^3 (0.0-1.0); MONOCYTES % (AUTO) 6 % (0-12); NEUTROPHILS # (AUTO) 11.7 X 10^3 (1.8-7.8); NEUTROPHILS % (AUTO) 88 % (42-75); PLATELET COUNT 328 10^3/uL (130-400); RED CELL DISTRIBUTION WIDTH 14.6 % (10.0-14.5); WHITE BLOOD COUNT 13.4 10^3/uL (4.3-11.0)
--- NOTE | 2018-11-12 21:10 | NUR ---
I GUESS I DONT HAVE THIS PT AFTER ALL.
[2018-11-12 21:17] LABS: ALBUMIN 4.1 GM/DL (3.2-4.5); BILIRUBIN,TOTAL 0.7 MG/DL (0.1-1.0); CALCIUM 9.6 MG/DL (8.5-10.1); CREATININE SERUM 1.13 MG/DL (0.60-1.30); TOTAL PROTEIN 7.7 GM/DL (6.4-8.2)
--- NOTE | 2018-11-12 21:17 | ED Abdominal Pain ---
General Chief Complaint: Abdominal/GI Problems Stated Complaint: FEVER,NAUSEA,VOMITING, STOMACH PAIN Nursing Triage Note: THE PT IS AMBULATORY TO THE ROOM WITHOUT DIFFICULTY. NO DISTRESS IS SEEN ON ARRIVAL. LOC IS [facility] FOR THE PT. THE PT STATES THAT SHE TRIPATHI A CHOLECYSTECTOMY 10 DAY'S AGO. SHE IS HAVING NAUSEA AND VOMITING TODAY. SHE HAS A HEAD ACHE. Sepsis Screen: No Definite Risk Source of Information: Patient Exam Limitations: No Limitations (CRISTIN RUDOLPH MEDICAL STUDENT) History of Present Illness Date Seen by Provider: Nov 12, 2018 Initial Comments Pt presents to ED c/o fever, chills, and vomiting since yesterday morning. Patient is 1 week s/p cholecystectomy with Dr. Dick, noting that last wednesday her bilirubin was elevated. Dr. Dick informed her that there may be a galls tone blocking her bile duct. She states yesterday her pain felt exactly like previous gallbladder attacks, noting referred pain to chest, both shoulders, and upper back. Today, she has not had this pain. Patient also admits to bilateral headache x2. Pt denies diarrhea, constipation, or urinary urgency. Patient has used tylenol to control her fever. Hydrocodone and laying down today helped her pain. However, she has been unable to keep any fluids or food down, vomiting six times today. Timing/Duration: 1-2 Days Severity/Quality: Moderate, Sharp Location: RUQ, Epigastric Radiation: Back (between scapulas), Chest, Shoulder (bilateral) Activities at Onset: None Modifying Factors: Improves With Lying down Associated Symptoms: Fever/Chills, Headache, Nausea/Vomiting (CRISTIN RUDOLPH MEDICAL STUDENT) Time Seen by Provider: 20:50 (SALLY RAMOS MD) Allergies and Home Medications Allergies Coded Allergies: No Known Drug Allergies (Unverified , 05/06/12) Home Medications Hydrocodone/Acetaminophen 1 Each Tablet, 1 TAB PO Q6H Prescribed by: LUTHER DICK on 11/05/18 1258 Patient Home Medication List Home Medication List Reviewed: Yes (CRISTIN RUDOLPH STUDENT) Home Medication List Reviewed: Yes (SALLY RAMOS MD) Review of Systems Review of Systems Constitutional: chills, fever EENTM: No Symptoms Reported Respiratory: No Symptoms Reported Cardiovascular: Chest Pain (yesterday) Gastrointestinal: Denies Constipated, Denies Diarrhea; Nausea, Poor Fluid Intake, Vomiting Genitourinary: Denies Burning, Denies Urgency Musculoskeletal: back pain (upper), neck pain Skin: no symptoms reported Psychiatric/Neurological: Headache Endocrine: No Symptoms Reported Hematologic/Lymphatic: No Symptoms Reported (CRISTIN RUDOLPH MEDICAL STUDENT) All Other Systems Reviewed Negative Unless Noted: Yes (SALLY RAMOS MD) Past Klnajuq-Kvoawp-Zazvkr Hx Past Med/Social Hx: Reviewed Nursing Past Med/Soc Hx (SALLY RAMOS MD) Patient Social History Alcohol Use: Rarely Uses (once per month) Recreational Drug Use: No Smoking Status: Never a Smoker 2nd Hand Smoke Exposure: No Recent Foreign Travel: No Contact w/Someone Who Travel: No Recent Infectious Disease Expo: No Recent Hopitalizations: No Physical Abuse: No Sexual Abuse: No Mistreated: No Fear: No (CRISTIN RUDOLPH MEDICAL STUDENT) Seasonal Allergies Seasonal Allergies: No (CRISTIN RUDOLPH STUDENT) Past Medical History Surgeries: Yes Section, Gallbladder (1 week ago), Tonsillectomy Respiratory: No Cardiac: No Neurological: No Reproductive Disorders: No Genitourinary: No Gastrointestinal: No Musculoskeletal: No Endocrine: No HEENT: No Tonsilitis Loss of Vision: Denies Hearing Impairment: Denies Cancer: No Did You Recieve Any Treatments: No Psychosocial: No Integumentary: Yes Recent Skin Changes Blood Disorders: No Adverse Reaction/Blood Tranf: No (CRISTIN RUDOLPH MEDICAL STUDENT) Family Medical History Reviewed Nursing Family Hx (SALLY RAMOS MD) FH: breast cancer Maternal Grandmother Hypertension 19 FATHER Kidney stones 19 FATHER Hypertension (CRISTIN RUDOLPH MEDICAL STUDENT) Physical Exam Vital Signs Vital Signs - First Documented 11/12/18 20:50 Temp 99.9 Pulse 140 Resp 18 B/P (MAP) 144/96 (112) (SALLY RAMOS MD) Vital Signs Capillary Refill : Less Than 3 Seconds (CRISTIN RUDOLPH MEDICAL STUDENT) Height/Weight/BMI Height: 5'6.00" Weight: 300lbs. 3.0oz. 136.909308gh; BMI Method:Estimated General Appearance: no apparent distress, obese HEENT: PERRL/EOMI; No scleral icterus (R), No scleral icterus (L) Neck: full range of motion, tender lateral Respiratory: lungs clear, normal breath sounds; No crackles, No rales, No wheezing Cardiovascular: normal peripheral pulses, regular rate, rhythm, no gallop, no murmur Peripheral Pulses: 2+ Radial Pulses (R), 2+ Radial Pulses (L) Gastrointestinal: soft; No guarding, No rebound; tenderness (RUQ), other (unable to palpate organs or hear bowel sounds due to obesity) Extremities: non-tender, no pedal edema Neurologic/Psychiatric: alert, oriented x 3 Skin: normal color, warm/dry (CRISTIN RUDOLPH MEDICAL STUDENT) General Appearance: WD/WN Respiratory: lungs clear, normal breath sounds Cardiovascular: regular rate, rhythm, no murmur Gastrointestinal: soft, tenderness (RUQ) Back: normal inspection, no CVA tenderness, no vertebral tenderness (SALLY RAMOS MD) Focused Exam Lactate Level 11/12/18 20:39: Lactic Acid Level 1.07 (SALLY RAMOS MD) Lactic Acid Level Laboratory Tests Test 11/12/18 20:39 Lactic Acid Level 1.07 MMOL/L (0.50-2.00) (SALLY RAMOS MD) Progress/Results/Core Measures Results/Orders Lab Results Laboratory Tests Test 11/12/18 20:20 11/12/18 20:30 11/12/18 20:39 Range/Units Urine Color YELLOW Urine Clarity CLEAR Urine pH 8 5-9 Urine Specific Kennard 1.015 L 1.016-1.022 Urine Protein NEGATIVE NEGATIVE Urine Glucose (UA) NEGATIVE NEGATIVE Urine Ketones NEGATIVE NEGATIVE Urine Nitrite NEGATIVE NEGATIVE Urine Bilirubin NEGATIVE NEGATIVE Urine Urobilinogen NORMAL NORMAL MG/DL Urine Leukocyte Esterase 1+ H NEGATIVE Urine RBC (Auto) 1+ H NEGATIVE Urine RBC 0-2 /HPF Urine WBC 2-5 /HPF Urine Squamous Epithelial Cells 5-10 /HPF Urine Crystals NONE /LPF Urine Bacteria MODERATE H /HPF Urine Casts NONE /LPF Urine Mucus NEGATIVE /LPF Urine Culture Indicated YES Urine Test NEGATIVE NEGATIVE White Blood Count 13.4 H 4.3-11.0 10^3/uL Red Blood Count 5.04 4.35-5.85 10^6/uL Hemoglobin 13.5 11.5-16.0 G/DL Hematocrit 41 35-52 % Mean Corpuscular Volume 82 80-99 FL Mean Corpuscular Hemoglobin 27 25-34 PG Mean Corpuscular Hemoglobin Concent 33 32-36 G/DL Red Cell Distribution Width 14.6 H 10.0-14.5 % Platelet Count 328 130-400 10^3/uL Mean Platelet Volume 11.0 H 7.4-10.4 FL Neutrophils (%) (Auto) 88 H 42-75 % Lymphocytes (%) (Auto) 6 L 12-44 % Monocytes (%) (Auto) 6 0-12 % Eosinophils (%) (Auto) 0 0-10 % Basophils (%) (Auto) 0 0-10 % Neutrophils # (Auto) 11.7 H 1.8-7.8 X 10^3 Lymphocytes # (Auto) 0.8 L 1.0-4.0 X 10^3 Monocytes # (Auto) 0.8 0.0-1.0 X 10^3 Eosinophils # (Auto) 0.1 0.0-0.3 10^3/uL Basophils # (Auto) 0.0 0.0-0.1 10^3/uL Neutrophils % (Manual) 87 % Lymphocytes % (Manual) 7 % Monocytes % (Manual) 5 % Eosinophils % (Manual) 1 % Blood Morphology Comment NORMAL Sodium Level 137 135-145 MMOL/L Potassium Level 4.0 3.6-5.0 MMOL/L Chloride Level 101 98-107 MMOL/L Carbon Dioxide Level 22 21-32 MMOL/L Anion Gap 14 5-14 MMOL/L Blood Urea Nitrogen 12 7-18 MG/DL Creatinine 1.13 0.60-1.30 MG/DL Estimat Glomerular Filtration Rate 60 BUN/Creatinine Ratio 11 Glucose Level 110 H 70-105 MG/DL Calcium Level 9.6 8.5-10.1 MG/DL Corrected Calcium 9.5 8.5-10.1 MG/DL Total Bilirubin 0.7 0.1-1.0 MG/DL Aspartate Amino Transf (AST/SGOT) 20 5-34 U/L Alanine Aminotransferase (ALT/SGPT) 63 H 0-55 U/L Alkaline Phosphatase 225 H 40-136 U/L C-Reactive Protein High Sensitivity 5.06 H 0.00-0.50 MG/DL Total Protein 7.7 6.4-8.2 GM/DL Albumin 4.1 3.2-4.5 GM/DL Lipase 7 L 8-78 U/L Lactic Acid Level 1.07 0.50-2.00 MMOL/L (SALLY RAMOS MD) My Orders Orders - SALLY RAMOS MD Ed Iv/Invasive Line Start (11/12/18 20:58) Ns Iv 1000 Ml (Sodium Chloride 0.9%) (11/12/18 20:58) Cbc With Automated Diff (11/12/18 20:58) Comprehensive Metabolic Panel (11/12/18 20:58) Hs C Reactive Protein (11/12/18 20:58) Lipase (11/12/18 20:58) Ua Culture If Indicated (11/12/18 20:58) Ondansetron Injection (Zofran Injectio (11/12/18 21:00) Chest Pa/Lat (2 View) (11/12/18 21:12) Lactic Acid Analyzer (11/12/18 21:12) Blood Culture (11/12/18 21:12) Manual Differential (11/12/18 20:30) Urine Culture (11/12/18 20:20) Hcg,Qualitative Urine (11/12/18 21:28) Ct Abdomen/Pelvis W (11/12/18 21:40) Iohexol Injection (Omnipaque 350 Mg/Ml 1 (11/12/18 22:15) Received Contrast (Hold Metformin- Contr (11/12/18 22:15) Ns (Ivpb) (Sodium Chloride 0.9% Ivpb Bag (11/12/18 22:15) Ibuprofen Tablet (Motrin Tablet) (11/12/18 22:24) Ed Iv/Invasive Line Start (11/12/18 22:52) Lactated Ringers (Lr 1000 Ml Iv Solution (11/12/18 22:52) Lactated Ringers (Lr 1000 Ml Iv Solution (11/12/18 22:48) (SALLY RAMOS MD) Medications Given in ED Current Medications Medications Dose Ordered Sig/Sailaja Route Start Time Stop Time Status Last Admin Dose Admin Iohexol 100 ml ONCE ONCE IV 11/12/18 22:15 11/12/18 22:16 DC 11/12/18 22:13 100 ML Lactated Ringer's 1,000 ml @ 0 mls/hr Q0M ONCE IV 11/12/18 22:52 11/12/18 22:53 DC 11/12/18 22:55 999 MLS/HR Ondansetron HCl 4 mg ONCE ONCE IVP 11/12/18 21:00 11/12/18 21:01 DC 11/12/18 21:20 4 MG Sodium Chloride 100 ml ONCE ONCE IV 11/12/18 22:15 11/12/18 22:16 DC 11/12/18 22:13 80 ML Sodium Chloride 1,000 ml @ 0 mls/hr Q0M ONCE IV 11/12/18 20:58 11/12/18 20:59 DC 11/12/18 21:20 999 MLS/HR (SALLY RAMOS MD) Vital Signs/I&O 11/12/18 20:50 Temp 99.9 Pulse 140 Resp 18 B/P (MAP) 144/96 (112) 11/13/18 00:00 Intake Total 1000 ml Balance 1000 ml (SALLY RAMOS MD) Blood Pressure Mean: 112 Progress Progress Note : Progress Note Seen and evaluated the patient and agree with above except as indicated. Have directed the plan of care. Patient is here with upper abdominal pain and fever. She states that the pain yesterday felt like when she had her gallbladder. She had cholecystectomy a week ago and there was some questions of retained stones. The surgeon is following her and was repeating labs. Dr. Dick did the surgery. She did take Tylenol tonight at about 6:30 PM. Has vomited several times today. Pain is better currently. She is tachycardic in the low 100s. Lungs are clear to auscultation bilaterally. Abdominal wounds are clean, dry and intact and appear to be healing well. We will check labs, UA, chest x-ray, blood cultures and lactic acid. CT abdomen pelvis ordered to evaluate for intra-abdominal infection. Normal saline 1 L bolus and Zofran 4 mg IV ordered. Monitor patient. 2205: Chest x-ray does not show any concerning findings. Labs reviewed and compared to previous. Previous operative report reviewed. Pending CT. Monitor patient. 0020: Patient CT results noted earlier and those didn't show any significant findings other than some stranding around one of the arthroscopic puncture sites. LR 1 L bolus ordered. Patient did receive ibuprofen 800 mg by mouth. Currently heart rate in the 90s and patient feeling much better. Discharged home with return precautions. Patient verbalize understanding instructions and agreement with plan. Copy of the chart will go to Dr. Dick. Patient to follow with him early next week. She will call his office Wednesday morning. Case was discussed with Dr. Levi who agrees. (SALLY RAMOS MD) Diagnostic Imaging Diagonstic Imaging: Xray Plain Films/CT/US/NM/MRI: chest Comments NAME: VICK SKAGGS [facility] REC#: [id number] PT STATUS: REG ER : 1995 PHYSICIAN: SALLY RAMOS MD ADMIT DATE: 11/12/18/ER Draft Date of Exam:11/12/18 CHEST PA/LAT (2 VIEW) PATIENT HISTORY: Fever, nausea and vomiting. TECHNIQUE: Two views of the chest. COMPARISON: 11/04/2018. FINDINGS: The lung volumes are normal. No focal consolidation is seen. No large pleural effusion or pneumothorax is seen. The cardiomediastinal silhouette is normal in size and contour. No acute osseous abnormality is seen. IMPRESSION: No acute pulmonary abnormality seen. Dictated on workstation # [id number] Dict: 11/12/182153 Trans: 11/12/182154 [facility] [id number] Interpreted by: NIKKI FORTE MD Electronically signed by: Diagonstic Imaging: CT Plain Films/CT/US/NM/MRI: abdomen, pelvis Comments NAME: VICK SKAGGS [facility] REC#: [id number] PT STATUS: REG ER : 1995 PHYSICIAN: SALLY RAMOS MD ADMIT DATE: 11/12/18/ER Signed Date of Exam: 11/12/18 CT ABDOMEN/PELVIS W PROCEDURE: CT abdomen and pelvis with contrast. TECHNIQUE: Multiple contiguous axial images were obtained through the abdomen and pelvis after administration of intravenous contrast. Auto Exposure Controls were utilized during the CT exam to meet ALARA standards for radiation dose reduction. INDICATION: Fever, nausea and vomiting. History of laparoscopic cholecystectomy on 11/05/2018. COMPARISON: 11/04/2018 FINDINGS: The lung bases are clear. The heart is normal in size. The liver demonstrates no focal lesions. Cholecystectomy clips are noted. There is trace fluid at the gallbladder fossa. The spleen appears normal. The adrenal glands are normal. The kidneys appear normal. The pancreas demonstrates no acute abnormality. The bowel loops are nondistended without obstruction. No free fluid or free air is seen. No adenopathy is seen. No acute osseous abnormalities seen. No discrete fluid collections are seen. There is confluent edema in the subcutaneous fat of the anterior abdomen in the midline just superior to the umbilicus, which is likely the site of the prior port. IMPRESSION: 1. Postcholecystectomy changes. No free fluid, free air or fluid collections within the abdomen. 2. There is edema/fluid in the anterior subcutaneous fat, in a tract likely from the prior port. No drainable fluid collection is seen. Dictated by: Dictated on workstation # [id number] Dict: 11/12/182201 Trans: 11/12/182216 Interpreted by: NIKKI FORTE MD Electronically signed by: NIKKI FORTE MD 11/12/182216 Reviewed: Reviewed by Me (SALLY RAMOS MD) Departure Impression Primary Impression: Upper abdominal pain Additional Impression: Fever Qualified Codes: R50.9 - Fever, unspecified Disposition: 01 HOME, SELF-CARE Condition: Improved Departure-Patient Inst. Decision time for Depature: 00:22 (SALLY RAMOS MD) Referrals: NO,LOCAL PHYSICIAN (PCP/Family) Primary Care Physician Patient Instructions: Acute Abdomen (Belly Pain), Adult (DC), Fever, Adult (DC) Scripts Ondansetron (Ondansetron Odt) 4 Mg Tab.rapdis 4 MG PO Q6H PRN for NAUSEA/VOMITING, #8 TAB 0 Refills Prov: SALLY RAMOS MD 11/13/18 Copy Copies To 1: LUTHER DICK KAT MEDICAL STUDENT Nov 12, 2018 21:17 SALLY RAMOS MD Nov 12, 2018 22:12
[2018-11-12 21:19] LABS: BACTERIA,URINE MODERATE /HPF; RBC,URINE 0-2 /HPF
[2018-11-12 21:40] LABS: NEUTROPHILS % (MANUAL) 87 %
[2018-11-12 21:41] LABS: EOSINOPHILS % (MANUAL) 1 %; LYMPHOCYTES % (MANUAL) 7 %; MONOCYTES % (MANUAL) 5 %; RBC MORPH NORMAL
--- NOTE | 2018-11-12 21:56 | Diagnostic Imaging Report ---
PATIENT HISTORY: Fever, nausea and vomiting. TECHNIQUE: Two views of the chest. COMPARISON: 11/04/2018. FINDINGS: The lung volumes are normal. No focal consolidation is seen. No large pleural effusion or pneumothorax is seen. The cardiomediastinal silhouette is normal in size and contour. No acute osseous abnormality is seen. IMPRESSION: No acute pulmonary abnormality seen. Dictated by: Dictated on workstation # [id number]
--- NOTE | 2018-11-12 22:13 | Diagnostic Imaging Report ---
PROCEDURE: CT abdomen and pelvis with contrast. TECHNIQUE: Multiple contiguous axial images were obtained through the abdomen and pelvis after administration of intravenous contrast. Auto Exposure Controls were utilized during the CT exam to meet ALARA standards for radiation dose reduction. INDICATION: Fever, nausea and vomiting. History of laparoscopic cholecystectomy on 11/05/2018. COMPARISON: 11/04/2018 FINDINGS: The lung bases are clear. The heart is normal in size. The liver demonstrates no focal lesions. Cholecystectomy clips are noted. There is trace fluid at the gallbladder fossa. The spleen appears normal. The adrenal glands are normal. The kidneys appear normal. The pancreas demonstrates no acute abnormality. The bowel loops are nondistended without obstruction. No free fluid or free air is seen. No adenopathy is seen. No acute osseous abnormalities seen. No discrete fluid collections are seen. There is confluent edema in the subcutaneous fat of the anterior abdomen in the midline just superior to the umbilicus, which is likely the site of the prior port. IMPRESSION: 1. Postcholecystectomy changes. No free fluid, free air or fluid collections within the abdomen. 2. There is edema/fluid in the anterior subcutaneous fat, in a tract likely from the prior port. No drainable fluid collection is seen. Dictated by: Dictated on workstation # [id number]
[2018-11-12] MEDS ORDERED: NS 100 ML (IVPB) BAG IV ONE (22:15)
[2018-11-12] MEDS ORDERED: IOHEXOL 350 MG/ML 100 ML (OMNIPAQUE 350) VIAL IV ONE (22:15)
[2018-11-12] MEDS ORDERED: HOLD METFORMIN - RECEIVED CONTRAST 20 ML VIAL IV SCH (22:15)
[2018-11-12] MEDS ORDERED: IBUPROFEN 800 MG (MOTRIN) TAB PO STA (22:24)
[2018-11-12] MEDS ORDERED: LACTATED RINGERS 1,000 ML IV ONE ×2 (22:48→22:52)
[2018-11-13] MEDS ORDERED: ONDA4TAB11 PO (00:27)
[2018-11-13 00:45] VITALS: BP 128/81
--- NOTE | 2018-11-13 12:54 | NUR ---
LAB CALLED AND REPORTED A GRAM FAITH IN BLOOD CULTURE DR CASEY NOTIFIED.
== END 2018-11-13 00:48 | disposition home or self-care (01) ==
LOC: EDUNIT# 20:10 → ER 20:12
DX: R50.9 Fever, unspecified (principal); R10.13 Epigastric pain; Z90.49 Acquired absence of other specified parts of digestive tract; Z90.89 Acquired absence of other organs; Z80.3 Family history of malignant neoplasm of breast; Z82.49 Family history of ischemic heart disease and other diseases of the circulatory system
CPT/HCPCS: 36415; 71046; 74177; 80053; 81000; 83605; 83690; 84703; 85007; 85027; 86141; 87040; 87088

== ENCOUNTER 2021-09-17 02:46 | Emergency (ER) | payer BC ==
[~2021-09-17] VITALS: Ht 170.1 cm; Wt 200.0 kg
[~2021-09-17 02:46] MED LIST changes: +ACHYD1T PO; -HYDR-3820 PO; +ONDA4TAB11 PO
[2021-09-17 03:14] LABS: BILIRUBIN,URINE NEGATIVE (NEGATIVE); CLARITY,URINE CLEAR; COLOR,URINE YELLOW; GLUCOSE, URINE (UA) NEGATIVE (NEGATIVE); KETONES,URINE NEGATIVE (NEGATIVE); LEUKOCYTE ESTERASE ,URINE TRACE (NEGATIVE); NITRITE,URINE NEGATIVE (NEGATIVE); PROTEIN,URINE NEGATIVE (NEGATIVE)
[2021-09-17 03:22] LABS: BACTERIA,URINE TRACE /HPF
[2021-09-17 03:23] LABS: WAXY CASTS,URINE RARE /LPF
[2021-09-17 03:26] LABS: AMPHETAMINE SCREEN, URINE NEGATIVE (NEGATIVE); BARBITURATE SCREEN URINE NEGATIVE (NEGATIVE); BENZODIAZEPINES SCREEN URINE NEGATIVE (NEGATIVE); CANNABINOID SCREEN, URINE NEGATIVE (NEGATIVE); COCAINE SCREEN URINE NEGATIVE (NEGATIVE); METHADONE STAT NEGATIVE (NEGATIVE); METHAMPHETAMINE SCREEN URINE S NEGATIVE (NEGATIVE); OPIATE SCREEN URINE NEGATIVE (NEGATIVE); OXYCODONE STAT NEGATIVE (NEGATIVE); PROPOXYPHENE STAT NEGATIVE (NEGATIVE); TRICYCLIC ANTIDEPRESSANTS SCRE NEGATIVE (NEGATIVE)
[2021-09-17 03:27] VITALS: BP 159/97
[2021-09-17 03:41] LABS: BASOPHILS % (AUTO) 1 % (0-10); EOSINOPHILS # (AUTO) 0.2 10^3/uL (0.0-0.3); EOSINOPHILS % (AUTO) 2 % (0-10); HEMATOCRIT 43 % (35-52); HEMOGLOBIN 14.5 g/dL (11.5-16.0); LYMPHOCYTES # (AUTO) 1.6 10^3/uL (1.0-4.0); LYMPHOCYTES % (AUTO) 22 % (12-44); MEAN CORPUSCULAR HEMOGLOBIN 29 pg (25-34); MEAN CORPUSCULAR HGB CONC 34 g/dL (32-36); MEAN CORPUSCULAR VOLUME 88 fL (80-99); MEAN PLATELET VOLUME 10.5 fL (9.0-12.2); MONOCYTES # (AUTO) 0.6 10^3/uL (0.0-1.0); MONOCYTES % (AUTO) 9 % (0-12); NEUTROPHILS # (AUTO) 4.7 10^3/uL (1.8-7.8); NEUTROPHILS % (AUTO) 66 % (42-75); PLATELET COUNT 243 10^3/uL (130-400); WHITE BLOOD COUNT 7.1 10^3/uL (4.3-11.0)
--- NOTE | 2021-09-17 03:47 | ED Psychosocial ---
General Chief Complaint: Suicidal Ideation Risk Stated Complaint: SUICIDAL IDEATIONS Nursing Triage Note: PT AMBULATORY INTO ER WITH WITH COMPLAINT OF SUICIDAL THOUGHTS X 4 DAYS. PT STATES THAT HER DEALS WITH MENTAL HEALTH ISSUES, HAS A YOUNG CHILD, AND STARTED A NEW STRESSFUL JOB. PT STATES THAT SHE FEELS OVERWHELMED AND FEELS THAT SHE HAS TO KEEP IT TOGETHER FOR HER JOB, MARRIAGE, AND FOR HER CHILD. PT STATES THAT SHE TALKED TO HER PCP ABOUT 9 DAYS AGO AND WAS STARTED ON A NEW MED CALLED DESVENLAFAX. PT STATES THAT AFTER ABOUT 5 DAYS OF BEING ON IT, HER ANXIETY WORSENED SIGNIFICANTLY AND STARTED HAVING SI. PT STATES THAT SHE HAS TOSSED AROUND IDEA OF HANGING HERSELF OR SHOOTING SELF, BUT DOESNT HAVE ACCESS TO GUN. PT STATES THAT SHE WANTS HELP, SHE DOESN'T WANT TO LEAVE HER FAMILY BEHIND. PT STATES THAT HER IS A HUGE ASSET TO HER AND VERY SUPPORTIVE OF THE SITUATION. PT DENIES SELF HARM OR ATTEMPTS OF SUICIDE IN PAST. PT ADMITS TO TAKING A COUPLE DOSES OF HER HUSBANDS HYDROXIZINE THE LAST COUPLE DAYS. SHE STATES THAT IT DID HELP, BUT THE SI HASN'T GOTTEN ANY BETTER AND FEELS THAT SHE NEEDS TO BE HERE TO GET HELP. Source: patient (HAL HEARD DO) History of Present Illness Date Seen by Provider: Sep 17, 2021 Time Seen by Provider: 03:07 Initial Comments PT ARRIVES VIA POV FROM HOME WITH C/O SUICIDAL THOUGHTS FOR THE LAST 3-4 DAYS HAS VAGUE PLANS--MAYBE HANGING OR SHOOTING HERSELF, BUT DOES NOT HAVE ACCESS TO A GUN OR AN ACTUAL WAY OF HANGING HERSELF SHE HAS NOT MADE ANY ATTEMPT TO HARM HERSELF, EVER. STATES THAT SHE HAS NEVER FELT THIS WAY BEFORE AND STATES "I DON'T WANT TO HURT MYSELF--IT'S JUST VERY SCARY TO FEEL THIS WAY" HAS A SMALL CHILD AND AT HOME AND DOES NOT WANT TO HURT HERSELF BECAUSE SHE HAS TO CARE FOR THEM. STATES HER HAS SOME MENTAL HEALTH ISSUES--DX WITH AUTISM AT AGE 23, HAS ANXIETY AND DEPRESSION. SHE STATES HE IS SUPPORTIVE OF HER. STATES SHE FEELS VERY OVERWHELMED WITH RESPONSIBILITIES--FEELS LIKE SHE HAS TO TAKE CARE OF HIM LIKE A CHILD SOMETIMES, ALONG WITH THEIR SMALL CHILD SHE ALSO HAS A NEW JOB--STATES SHE LOVES HER JOB, BUT IT IS VERY STRESSFUL. HAS WORKED AT [employer] IN [place] FOR THE LAST 6 MONTHS. DISCUSSED THIS FEELING OF ANXIETY AND STRESS WITH HER SAND OPERATOR, GAVINO SIMONS ABOUT 2 WEEKS AGO AND SHE WAS STARTED ON DESVENLAFAXINE ( PRISTIQ) PRESCRIBED 25 MG TABLET ON 09/03/21 THEN DOSE WAS DOUBLED TO 50 MG ON 09/10/21 STATES THAT SHE HAD NEVER HAD SUICIDAL THOUGHTS UNTIL SHE STARTED TAKING THAT MEDICATION HAVING SUICIDAL THOUGHTS HAS ALSO INCREASED HER ANXIETY PT STATES SHE HAS TRIED TAKING HER 'S HYDROXYZINE 50 MG TWICE A DAY FOR THE LAST 2 DAYS FOR INCREASING ANXIETY AND IT HELPED WITH ANXIETY BUT NOT SUICIDAL IDEATIONS PT HAS NEVER SEEN ANY MENTAL HEALTH PROVIDER STATES SHE HAD SOME ANXIETY IN HIGH SCHOOL BUT WAS MINOR IN COMPARISON TO NOW. PT DENIES ANY CHRONIC MEDICAL PROBLEMS DOES NOT TAKE ANY ROUTINE MEDICATIONS OTHERWISE. LMP --ENDED 2-3 DAYS AGO. NORMAL. NO CONTROL. PCP: SAND OPERATOR GAVINO SIMONS AT [facility] (HAL HEARD DO) Allergies and Home Medications Allergies Coded Allergies: No Known Drug Allergies (Unverified , 05/06/12) Patient Home Medication List Home Medication List Reviewed: Yes (CANDELARIA NUNEZ MD) Hydrocodone Bit/Acetaminophen (HYDROcodone/APAP 10/325 TABLET) 1 Each Tablet, 1 TAB PO Q6H Prescribed by: LUTHER DICK on 11/05/18 1258 Ondansetron (Ondansetron Odt) 4 Mg Tab.rapdis, 4 MG PO Q6H PRN for NAUSEA/VOMITING Prescribed by: SALLY RAMOS on 11/13/18 0027 Review of Systems Constitutional: no symptoms reported EENTM: no symptoms reported Respiratory: no symptoms reported Cardiovascular: no symptoms reported Gastrointestinal: no symptoms reported Genitourinary: no symptoms reported LMP: Sep 10, 2021 Control/STD Prophylaxis: None Musculoskeletal: no symptoms reported Skin: no symptoms reported Psychiatric/Neurological: See HPI, Anxiety, Depressed, Emotional Problems (HAL HEARD DO) Past Hlqttoe-Jsvbhe-Guwpvu Hx Patient Social History Tobacco Use?: No Use of E-Cig and/or Vaping dev: No Substance use?: No Alcohol Use?: Yes Alcohol type: Beer, Hard Liquor, Wine Alcohol Frequency: Several times a month Pt feels they are or have been: No (HAL HEARD DO) Immunizations Up To Date Influenza Vaccine Up-to-Date: No; Not Current (HAL HEARD DO) Seasonal Allergies Seasonal Allergies: No (HAL HEARD DO) Past Medical History Surgeries: Yes Section, Gallbladder, Tonsillectomy Respiratory: No Cardiac: No Neurological: No : No Last Menstrual Period: Sep 13, 2021 Reproductive Disorders: No Genitourinary: No Gastrointestinal: No Musculoskeletal: No Endocrine: No HEENT: No Tonsilitis Loss of Vision: Denies Hearing Impairment: Denies Cancer: No Did You Recieve Any Treatments: No Psychosocial: Yes Anxiety Integumentary: No Blood Disorders: No Adverse Reaction/Blood Tranf: No (HAL HEARD DO) Family Medical History FH: breast cancer Maternal Grandmother Hypertension 19 FATHER Kidney stones 19 FATHER Hypertension (HAL HEARD DO) Physical Exam Vital Signs - First Documented 09/17/21 03:27 Temp 36.7 Pulse 79 Resp 18 B/P (MAP) 159/97 (117) Pulse Ox 97 O2 Delivery Room Air (CANDELARIA NUNEZ MD) Capillary Refill : Less Than 3 Seconds (HAL HEARD DO) Height, Weight, BMI Height: 5'6.00" Weight: 405lbs. 0oz. [id number]; 69.00 BMI Method:Stated General Appearance: WD/WN, no apparent distress, obese (MORBIDLY), other (TEARFUL) Neck: normal inspection Respiratory: normal breath sounds, no respiratory distress, no accessory muscle use Cardiovascular: regular rate, rhythm, no murmur Gastrointestinal: non tender, soft Extremities: normal inspection, normal capillary refill Neurologic/Psychiatric: head of product II-XII nml as tested, no motor/sensory deficits, alert, oriented x 3 Appearance/Memory: appropriate appearance, appropriate insight, neat, no memory impairment Behavior/Eye Contact: cooperative, good eye contact, normal speech Thoughts/Hallucinations: no apparent hallucination; No delusions, No flight of ideas, No grandiose, No incoherent, No obsessive, No paranoid, No persecution, No phobic, No hindu Skin: normal color, warm/dry, other (NO EXTERNAL EVIDENCE OF TRAUMA) (HAL HEARD DO) Progress/Results/Core Measures Results/Orders Lab Results Laboratory Tests Test 09/17/21 03:09 09/17/21 03:23 09/17/21 03:25 Range/Units Urine Color YELLOW Urine Clarity CLEAR Urine pH 6.0 5-9 Urine Specific Spurger 1.015 L 1.016-1.022 Urine Protein NEGATIVE NEGATIVE Urine Glucose (UA) NEGATIVE NEGATIVE Urine Ketones NEGATIVE NEGATIVE Urine Nitrite NEGATIVE NEGATIVE Urine Bilirubin NEGATIVE NEGATIVE Urine Urobilinogen 0.2 < = 1.0 MG/DL Urine Leukocyte Esterase TRACE H NEGATIVE Urine RBC (Auto) NEGATIVE NEGATIVE Urine RBC NONE /HPF Urine WBC 2-5 /HPF Urine Squamous Epithelial Cells 2-5 /HPF Urine Crystals NONE /LPF Urine Bacteria TRACE /HPF Urine Casts PRESENT /LPF Urine Waxy Casts RARE H /LPF Urine Mucus NEGATIVE /LPF Urine Culture Indicated NO Urine Opiates Screen NEGATIVE NEGATIVE Urine Oxycodone Screen NEGATIVE NEGATIVE Urine Methadone Screen NEGATIVE NEGATIVE Urine Propoxyphene Screen NEGATIVE NEGATIVE Urine Barbiturates Screen NEGATIVE NEGATIVE Ur Tricyclic Antidepressants Screen NEGATIVE NEGATIVE Urine Phencyclidine Screen NEGATIVE NEGATIVE Urine Amphetamines Screen NEGATIVE NEGATIVE Urine Methamphetamines Screen NEGATIVE NEGATIVE Urine Benzodiazepines Screen NEGATIVE NEGATIVE Urine Cocaine Screen NEGATIVE NEGATIVE Urine Cannabinoids Screen NEGATIVE NEGATIVE Influenza Type A (RT-PCR) Not Detected Not Detecte Influenza Type B (RT-PCR) Not Detected Not Detecte SARS-CoV-2 RNA (RT-PCR) Not Detected Not Detecte White Blood Count 7.1 4.3-11.0 10^3/uL Red Blood Count 4.95 3.80-5.11 10^6/uL Hemoglobin 14.5 11.5-16.0 g/dL Hematocrit 43 35-52 % Mean Corpuscular Volume 88 80-99 fL Mean Corpuscular Hemoglobin 29 25-34 pg Mean Corpuscular Hemoglobin Concent 34 32-36 g/dL Red Cell Distribution Width 12.3 10.0-14.5 % Platelet Count 243 130-400 10^3/uL Mean Platelet Volume 10.5 9.0-12.2 fL Immature Granulocyte % (Auto) 0 % Neutrophils (%) (Auto) 66 42-75 % Lymphocytes (%) (Auto) 22 12-44 % Monocytes (%) (Auto) 9 0-12 % Eosinophils (%) (Auto) 2 0-10 % Basophils (%) (Auto) 1 0-10 % Neutrophils # (Auto) 4.7 1.8-7.8 10^3/uL Lymphocytes # (Auto) 1.6 1.0-4.0 10^3/uL Monocytes # (Auto) 0.6 0.0-1.0 10^3/uL Eosinophils # (Auto) 0.2 0.0-0.3 10^3/uL Basophils # (Auto) 0.0 0.0-0.1 10^3/uL Immature Granulocyte # (Auto) 0.0 0.0-0.1 10^3/uL Sodium Level 142 135-145 MMOL/L Potassium Level 3.9 3.6-5.0 MMOL/L Chloride Level 106 98-107 MMOL/L Carbon Dioxide Level 21 21-32 MMOL/L Anion Gap 15 H 5-14 MMOL/L Blood Urea Nitrogen 9 7-18 MG/DL Creatinine 0.94 0.60-1.30 MG/DL Estimat Glomerular Filtration Rate 86 BUN/Creatinine Ratio 10 Glucose Level 114 H 70-105 MG/DL Calcium Level 9.5 8.5-10.1 MG/DL Corrected Calcium 9.3 8.5-10.1 MG/DL Total Bilirubin 0.5 0.1-1.0 MG/DL Aspartate Amino Transf (AST/SGOT) 16 5-34 U/L Alanine Aminotransferase (ALT/SGPT) 32 0-55 U/L Alkaline Phosphatase 103 40-136 U/L Total Protein 7.0 6.4-8.2 GM/DL Albumin 4.2 3.2-4.5 GM/DL Serum Test, Qualitative NEGATIVE NEGATIVE Salicylates Level < 5.0 L 5.0-20.0 MG/DL Acetaminophen Level < 10 L 10-30 UG/ML Serum Alcohol < 10 <10 MG/DL (CANDELARIA NUNEZ MD) Vital Signs/I&O 09/17/21 03:27 Temp 36.7 Pulse 79 Resp 18 B/P (MAP) 159/97 (117) Pulse Ox 97 O2 Delivery Room Air (CANDELARIA NUNEZ MD) Blood Pressure Mean: 117 Progress Progress Note : Progress Note PT CALMED SHORTLY AFTER ARRIVAL, AND NO LONGER CRYING. 0400--PT HAS BEEN CLEARED MEDICALLY. WILL CONTACT [facility] FOR MENTAL HEALTH EVALUATION. 0600--CARE TURNED OVER TO DR. NUNEZ, MENTAL HEALTH SCREEN PENDING (HAL HEARD DO) Progress Note : Time: 07:41 Progress Note I assumed care of this patient from Dr. Heard at shift change. She has finished her behavioral health screening. The intent is to discharge her with a safety plan. We should receive the safety plan shortly for patient's review. Patient does feel comfortable returning home with a safety plan at this point in time. She denies having immediate access to firearms or other self-harm instruments. We have discussed use of Pristiq. We agree that Pristiq should be stopped at th is point in time since symptoms seem to change and escalate after starting this medication. The screener will help facilitate establishing a behavioral health evaluation to discuss alternatives. (CANDELARIA NUNEZ MD) Initial ECG Impression Date: Sep 17, 2021 Initial ECG Impression Time: 03:14 Initial ECG Rate: 66 Initial ECG Rhythm: Normal Sinus (HAL HEARD DO) Departure Communication (Admissions) 0403--[facility] BEING CONTACTED (HAL HEARD DO) Impression Primary Impression: Passive suicidal ideations Additional Impressions: Depression Anxiety Disposition: 01 HOME, SELF-CARE Condition: Stable Departure-Patient Inst. Referrals: CARISSA SIMONS (PCP/Family) Primary Care Physician Patient Instructions: OUTPT MENTAL HEALTH SERVICES, Suicide Prevention Add. Discharge Instructions: Review resources provided by the behavioral health screener. Review the safety plan and follow those instructions should symptoms not improve or escalate. Stop Pristiq and discuss alternatives with either a behavioral health prescriber or your primary care provider. Call with questions or concerns and return to the ER or call 911 if you have severe escalating symptoms. All discharge instructions reviewed with patient and/or family. Voiced understanding. Work/School Note: Work Release Form Date Seen in the Emergency Department: Sep 17, 2021 Return to Work: Sep 18, 2021 Restrictions: No Restrictions HAL HEARD DO Sep 17, 2021 03:47 CANDELARIA NUNEZ MD Sep 17, 2021 07:45
[2021-09-17 03:48] LABS: ALBUMIN 4.2 GM/DL (3.2-4.5); CHLORIDE 106 MMOL/L (98-107); POTASSIUM 3.9 MMOL/L (3.6-5.0); SODIUM 142 MMOL/L (135-145)
[2021-09-17 03:49] LABS: CALCIUM 9.5 MG/DL (8.5-10.1)
[2021-09-17 03:51] LABS: GLUCOSE 114 MG/DL (70-105)
[2021-09-17 03:52] LABS: BILIRUBIN,TOTAL 0.5 MG/DL (0.1-1.0); CARBON DIOXIDE 21 MMOL/L (21-32)
[2021-09-17 03:55] LABS: ALKALINE PHOSPHATASE 103 U/L (40-136); CREATININE SERUM 0.94 MG/DL (0.60-1.30); GFR ESTIMATED 86
[2021-09-17 03:56] LABS: BUN/CREATININE RATIO 10
[2021-09-17 03:57] LABS: SALICYLATE < 5.0 MG/DL (5.0-20.0)
[2021-09-17 03:58] LABS: ALANINE AMINOTRANSFERASE 32 U/L (0-55)
[2021-09-17 03:59] LABS: ACETAMINOPHEN < 10 UG/ML (10-30)
== END 2021-09-17 08:20 | disposition home or self-care (01) ==
LOC: EDUNIT# 02:46 → ER 02:54
DX: F32.9 Major depressive disorder, single episode, unspecified (principal); F41.9 Anxiety disorder, unspecified; R45.851 Suicidal ideations; E66.01 Morbid (severe) obesity due to excess calories; Z68.44 Body mass index [BMI] 60.0-69.9, adult; Z20.822 Contact with and (suspected) exposure to COVID-19
CPT/HCPCS: 80053; 80306; 81000; 84703; 85025; 87636; 93005; 99283; G0480 ×3; 36415; 80320; 80329